=== PATIENT | female | born 1990 | race Caucasian/White ===

== ENCOUNTER 2017-07-02 06:09 | Inpatient (IN) ==
--- OUTSIDE RECORDS SUMMARY | 2017-07-02 06:19 | External Medical Summary | Continuity of Care Document ---
:1990 Author Organization [facility] Address [address] [place], [place] [id number] Phone Support Name Relationship Address Phone Deborah Jasso spouse [address] [phone] [place] [address] Allergies, Adverse Reactions, Alerts Substance Reaction Severity Status cefaclor rash Unknown Active Medications Medication Instructions Dosage Effective Dates Status Comments (start - stop) 28 mg take 1 by Oral route Not Available - Active iron-800 mcg every day tablet Problems Condition Effective Dates (start - stop) Clinical Status Encntr screen for infections w sexl - mode of transmiss Encounter for screening for oth - infec/parastc diseases Encntr for suprvsn of normal first - preg, first trimester Encounter for screening of - mother 13 weeks gestation of - Mild to moderate pre-eclampsia, third - trimester Encntr for suprvsn of normal first - preg, third trimester 34 weeks gestation of - Mild to moderate pre-eclampsia, third - trimester Decreased movements, third - trimester, unsp Encntr for suprvsn of normal first - preg, third trimester 34 weeks gestation of - Mild to moderate pre-eclampsia, third - trimester Encntr for suprvsn of normal first - preg, second trimester 19 weeks gestation of - Encntr for suprvsn of normal first - preg, second trimester 23 weeks gestation of - Encntr for suprvsn of normal first - preg, second trimester 27 weeks gestation of - Encntr for suprvsn of normal first - preg, second trimester 19 weeks gestation of - Encntr for suprvsn of normal first - preg, second trimester 17 weeks gestation of - Encntr for suprvsn of normal first - preg, third trimester 30 weeks gestation of - Encntr for suprvsn of normal first - preg, third trimester 35 weeks gestation of - Encntr for suprvsn of normal first - preg, third trimester 32 weeks gestation of - Encntr for suprvsn of normal first - preg, third trimester Encounter For Screening For - Streptococcus B 36 weeks gestation of - Procedures Procedure Date Unknown Results Test Name Date and Time Measure Units Reference Range Abnormal Flag Comments Unknown Advance Directives Directive Yes / No Effective Date File Name Unknown Encounters Encounter Practice Location Reason(s) Diagnoses Date Provider Care Team Description For Visit Members Jose Rincon Encestellar for Jun- Waylon Referring In Womens suprvsn of normal 5-201 Melissa. Provider: Bukc MALDONADO, first preg, third 7 700 Melissa PO Box trimesterEncounte Medical Waylon L, 1522, r For Center [address] [place] [address], Screening For Herb Sauceda Streptococcus B36 120, Alexis [id number], weeks gestation Herb Rincon 120, [place] of Sergey FRITZ, tel:[phone] [place], [id number] , [place]. [id number]. tel: [phone] Jose Tellor for Jun-1 Waylon Referring In Womens suprvsn of normal 0-201 Melissa. Provider: Buck MALDONADO, first preg, third 7 700 Melissa PO Box [email or web address] weeks Medical Waylon L, 1522, gestation of Center [address] [place] [address], Herb Sauceda, 120, Center [id number], Herb Rincon 120, [place] Sergey FRITZ, tel:[phone] [place], , [place]. [id number]. tel: tel: [phone] [facility] Sergey Mild to moderate Nov-0 Sobbing Referring In Womens pre-eclampsia, 3-201 Dimitris. Provider: Buck MALDONADO, third 7 700 Melissa PO Box trimesterEncntr Medical Waylon Menendez, 1522, for suprvsn of [address], normal first [address], Medical LAM, preg, third Suite Center [id number], [email or web address] weeks 120, Herb 120, [place] gestation of Sergey Rincon, tel: [place], [address], [id number]. [place]. tel: tel: [phone] [facility] Mild to moderate Nov-0 Waylon Referring In Womens pre-eclampsia, 2-201 Melissa. Provider: Buck MALDONADO, third trimester 7 700 Melissa PO Box Maciel Menendez, 1522, [place] [address] [place], , [facility] [place], 120, Alexis [id number], Rincon, [facility] 120, [place] LAM Sergey, tel:[phone] [place], , [place]. [id number]. tel: tel: [phone] [facility] Serge[facility] Mild to moderate Nov-0 Waylon Referring In Womens pre-eclampsia, 1-201 Melissa. Provider: Health ERICA, third 7 700 Melissa PO Box trimesterDecrease Maciel Menendez, 1522, d Center [address] [place], [place] [address]ta, movements, third , Herb [facility] LAM, trimester, 120, Alexis [id number], unspEncntr for Rincon, Herb 120, [place] suprvsn of normal Sergey FRITZ, tel: first preg, third [id number] [place], [email or web address] weeks , [place]. [id number]. gestation of tel: tel:+ [phone] [facility] Encntr for Oct-1 Waylon Referring In Womens suprvsn of normal 8-201 Melissa. Provider: Buck MALDONADO, first preg, third 7 700 Melissa PO Box [email or web address] weeks Medical Waylon Menendez, 1522, gestation of Center [address] [place], [place] [address]ta, Herb Sauceda [place], 120, Center [id number], Sergey [facility] 120, [place] Sergey FRITZ, tel: [phone] [place], , [place]. [id number]. tel: tel: [phone] [facility] Oct-0 Waylon In Womens 5-201 Melissa. Health ERICA, 7 700 PO Box Medical 1522, [facility], Dr [facility] [place], 120, [id number], Serge[place], [place], tel:[phone] , [place]. tel: [phone] Jose Rincon Encntr for Oct-0 Waylon Referring In Womens suprvsn of normal 4-201 Melissa. Provider: Buck MALDONADO, first preg, third 7 700 Melissa PO Box [email or web address] weeks Medical Waylon L, 1522, gestation of [address], Herb Sauceda [place], 120, Alexis [id number], Sergey [facility] 120, [place] Sergey FRITZ, tel:[phone] [place], , [place]. [id number]. tel: tel: [phone] [facility] Encntr for Sep-1 Waylon Referring In Womens suprvsn of normal 3-201 Melissa. Provider: Buck MALDONADO, first preg, 7 700 Melissa PO Box second Medical Waylon L, 1522, [email or web address], gestation of Herb Sauceda, 120, Alexis [id number], Sergey [facility] 120, [place] Sergey FRITZ, tel:[phone] [place], , [place]. [id number]. tel: tel: [phone] [facility] Encntr for Aug-1 Waylon Referring In Womens suprvsn of normal 6-201 Melissa. Provider: Buck MALDONADO, first preg, 7 700 Melissa PO Box second Medical Waylon L, 1522, [id number] weeks [address], gestation of Herb Sauceda, 120, Alexis [id number], Sergey [facility] 120, [place] Sergey FRITZ, tel:+ [phone] [place], , [place]. [id number]. tel: tel:[phone] Jose Rincon Encntr for Colby-1 Waylon Referring In Womens suprvsn of normal 9-201 Melissa. Provider: Buck MALDONADO, first preg, 7 700 Melissa PO Box second Medical Waylon L, 1522, [email or web address] weeks Center [address] [place] [address], gestation of Herb Sauceda, 120, Center [id number], Sergey, [facility] 120, [place] Sergey FRITZ, tel:[phone] [place], , [place]. [id number]. tel: tel:[phone] Jose Rincon Encntr for Colby-1 Waylon Referring In Womens Ultrasound suprvsn of normal 9-201 Melissa. Provider: Buck MALDONADO, first preg, 7 700 Melissa PO Box second Medical Waylon L, 1522, [email or web address] weeks Center [address] [place] [address], gestation of Herb Sauceda, 120, Center [id number], Sergey [facility] 120, [place] Sergey FRITZ, tel:[phone] [place], , [place]. [id number]. tel: tel:[phone] Jose Rincon Encntr for Colby-0 Waylon Referring In Womens suprvsn of normal 5-201 Melissa. Provider: Buck MALDONADO, first preg, 7 700 Melissa PO Box second Medical Waylon L, 1522, [email or web address] weeks Center [address] [place] [address], gestation of Herb Sauceda, 120, Center [id number], Sergey [facility] 120, [place] Sergey FRITZ, tel:[phone] [place], , [place]. [id number]. tel: tel:[phone] Jose Rincon Encntr screen for Jose Eduardo-0 Waylon Referring In Womens infections w sexl 7-201 Melissa. Provider: Buck MALDONADO, mode of 7 700 Melissa PO Box transmissEncounte Medical Waylon L, 1522, r for screening Center [address] [place] [address], for oth , [facility], infec/parastc 120, Alexis [id number], [facility]tr [facility], for suprvsn of Sergey FRITZ, tel:2 normal first [id number] LAM, [id number] preg, [facility] , [place]. [id number]. trimesterEncounte tel: tel: r for [phone] screening of weeks gestation of Family History Family Member Diagnosis Age At Onset No family history of Venous Thrombosis No family history of Pulmonary Embolism No family history of Ovarian Cancer No family history of Stroke No family history of Kidney Disease No family history of Osteoporosis No family history of Epilepsy No family history of Hypertension No family history of Lung Disease No family history of Diabetes No family history of Cardiovascular Disease No family history of Thyroid Disorder No family history of Breast Cancer No family history of Colon Cancer Immunizations Vaccine Date Status Comments Unknown Payers Payer name Insurance type Covered democrat ID Authorization(s) [facility] [id number] [facility] [id number] Social History Type Description Quantity Date Captured Unknown Vital Signs Date / Height Weight BMI Pulse Blood Temperature Respiratory Body Head BMI Time: Rate Pressure Rate Surface Circumference percentile Area Unknown Chief Complaint And Reason For Visit Unknown Chief Complaint And Reason For Visit Reason For Referral Reason For Referral Unknown Plan Of Care Date Type Action Status Appointment Aide Jasso BOOKED Appointment Aide Jasso BOOKED Appointment Aide Jasso BOOKED Future Order: Radiology Order Complete OB Ultrasound > 14 Ordered Weeks ([id number]) Date Type Problem Goal Intervention Status Start Date Unknown. History Of Present Illness Encounter Date Complaint History Of Present Illness This patient has no known history of present illness Functional Status Encounter Date Functional Assessment Cognitive Assessment Unknown Medications Administered Medication Instructions Dosage Effective Dates (start - stop) Status Comments Drug Treatment Unknown Instructions Date Instruction Additional Information HIV and other routine tests risk factors identified by history anticipated course of care nutrition and weight gain counseling, special diet toxoplasmosis precautions (cats / raw meat) sexual activity exercise indications for ultrasound influenza vaccine environmental / work hazards travel tobacco (ask, advise, assess, assist and arrange) alcohol illicit / recreational drugs use of any medications (including supplements, vitamins, herbs, OTC drugs) smoking counseling domestic violence seat belt use childbirth classes / hospital facilities hospital registration genetic testing new ob handbook
--- OUTSIDE RECORDS SUMMARY | 2017-07-02 06:19 | External Medical Summary | Continuity of Care Document ---
:1990 Author Organization [facility] Address [address] [place], [place] [id number] Phone Support Name Relationship Address Phone Deborah Jasso spouse [address] [phone] [place] [address] Allergies, Adverse Reactions, Alerts Substance Reaction Severity Status cefaclor rash Unknown Active Medications Medication Instructions Dosage Effective Dates Status Comments (start - stop) 28 mg take 1 by Oral route Not Available - Active iron-800 mcg every day tablet Problems Condition Effective Dates (start - stop) Clinical Status Encntr for suprvsn of normal first - preg, second trimester 23 weeks gestation of - Encntr screen for infections w sexl - mode of transmiss Encounter for screening for oth - infec/parastc diseases Encntr for suprvsn of normal first - preg, first trimester Encounter for screening of - mother 13 weeks gestation of - Encntr for suprvsn of normal first - preg, second trimester 19 weeks gestation of - 17 weeks gestation of - Encntr for suprvsn of normal first - preg, second trimester Encntr for suprvsn of normal first - preg, second trimester 19 weeks gestation of - Procedures Procedure Date OB Visit No Charge Results Test Name Date and Time Measure Units Reference Range Abnormal Flag Comments Unknown Advance Directives Directive Yes / No Effective Date File Name Unknown Encounters Encounter Practice Location Reason(s) Diagnoses Date Provider Care Team Description For Visit Members Jose Rincon Encntr for Aug-1 Waylon Referring In Womens suprvsn of normal 6-201 Melissa. Provider: Health [place], first preg, 7 700 Melissa PO Box second Medical Waylon L, 1522, [email or web address] weeks Center [address] [place], [place] [address], gestation of Herb Sauceda, 120, Center [id number], Sergey, [facility] 120, [place] Sergey FRITZ, tel:[phone] [place], , [place]. [id number]. tel: tel:[phone] Jose Rincon Encntr for Colby-1 Waylon Referring In Womens suprvsn of normal 9-201 Melissa. Provider: Health PA, first preg, 7 700 Melissa PO Box second Medical Waylon L, 1522, [email or web address] weeks Center [address] [place] [address], gestation of Herb Sauceda, 120, Center [id number], [facility] 120, [place] Sergey FRITZ, tel:[phone] [place], , [place]. [id number]. tel: tel:[phone] Jose Rincon Encntr for Jan-1 Waylon Referring In Womens Ultrasound suprvsn of normal 9-201 Melissa. Provider: Health ERICA, first preg, 7 700 Melissa PO Box second Medical Waylon L, 1522, [email or web address] weeks Center [address] [place] [address], gestation of Herb Sauceda, 120, Center [id number], Sergey [facility] 120, [place] Sergey FRITZ, tel:[phone] [place], , [place]. [id number]. tel: tel:[phone] Jose Rincon 17 weeks Colby-0 Waylon Referring In Womens gestation of 5-201 Melissa. Provider: Health ERICA, pregnancyEncntr 7 700 Melissa PO Box for suprvsn of Medical Waylon L, 1522, normal first Center [address] [place] [address], preg, second Herb Sauceda, trimester 120, Center [id number], Sergey, [facility] 120, [place] Sergey FRITZ, tel:[phone] LAM, , [place]. [id number]. tel: tel: [phone] [facility]y Encntr screen for Jose Eduardo-0 Waylon Referring In Womens infections w sexl 7-201 Melissa. Provider: Buck MALDONADO, mode of 7 700 Melissa PO Box transmissEncounte Medical Waylon L, 1522, r for screening Center [address] [place], for oth , [facility] Medical [place], infec/parastc 120, Center [id number], diseasesEncntr [facility] 120, [place] for suprvsn of Sergey FRITZ, tel:2 normal first [id number] [place], [id number] preg, [facility] , . [id number]. trimesterEncounte tel: tel: r for [phone] screening of [id number] weeks gestation of Family History Family Member [...] Unknown Payers Payer name Insurance type Covered libertarian ID Authorization(s) [facility] [id number] Social History Type Description Quantity Date Captured Alcohol Use Details No Caffeine Use Details Unknown Tobacco Use Status Unknown Smoking Status Never smoker Vital Signs Date / Height Weight BMI Pulse Blood Temperature Respiratory Body Head BMI Time: Rate Pressure Rate Surface Circumference percentile Area 217.00 32.0 132/86 -2017 lbs 4 mm[Hg] 11:01 kg/m AM eter (2) Chief Complaint And Reason For Visit Unknown Chief Complaint And Reason For Visit Reason For Referral Reason For Referral Unknown Plan Of Care Date Type Action Status Appointment Aide Jasso BOOKED Future Order: Radiology Order Complete OB Ultrasound > 14 Ordered Weeks ([id number]) Date Type Problem Goal Intervention Status Start [...]
--- OUTSIDE RECORDS SUMMARY | 2017-07-02 06:19 | External Medical Summary | Continuity of Care Document ---
:1990 Author Organization [facility] Address [address] [place], [place] [id number] Phone Support Name Relationship Address Phone Deborah Jasso spouse [address] [phone] [place] [address] Allergies, Adverse Reactions, Alerts Substance Reaction Severity [...] Provider Care Team Description For Visit Members Jsoe Rincon Encestellar for Jun- Waylon Referring In Womens suprvsn of normal 5-201 Melissa. Provider: Buck MALDONADO, first preg, third 7 700 Melissa PO Box trimesterEncounte Medical Waylon L, 1522, r For Center [address] [place] [address], Screening For Herb Sauceda Streptococcus B36 120, [place] [id number], weeks gestation Herb Rincon 120, [place] of Sergey FRITZ, tel:[phone] [place], [id number] , [place]. [id number]. tel: [phone] Jose Tellor for Jun-1 Waylon Referring In Womens suprvsn of normal 0-201 Melissa. Provider: Buck MALDONADO, first preg, third 7 700 Melissa PO Box [email or web address] weeks Medical Waylon L, 1522, gestation of Center [address] [place] [address], Herb Sauceda, 120, Center [id number], Herb Rincon 120, [place] Sergey FRITZ, tel:[phone] [place], , [place]. [id number]. tel: tel: [phone] [facility] Sergey Mild to moderate Nov-0 Sobbing Referring In Womens pre-eclampsia, 3-201 [place]. Provider: Health ERICA, third 7 700 Melissa PO Box trimesterEncntr Medical Waylon Menendez, 1522, for suprvsn of Center [address] [place], normal [address], Medical [place], preg, third Suite Center [id number], [email or web address] weeks 120, Herb 120, [place] gestation of Rincon Sergey, tel: [place], [address], [id number]. [place]. tel: tel: [phone] [facility] Sergey Mild to moderate Nov-0 Waylon Referring In Womens pre-eclampsia, 2-201 Melissa. Provider: Health ERICA, third trimester 7 700 Melissa PO Box [facility] Waylon Menendez, 1522, Center [facility] Dr Amarilys, [facility], 120, [place] [id number], [facility] 120, [place] Sergey FRITZ, tel:[phone] [place], , [place]. [id number]. tel: tel: [phone] [facility] Sergey Mild to moderate Nov-0 Waylon Referring In Womens pre-eclampsia, 1-201 Melissa. Provider: Health ERICA, third 7 700 Melissa PO Box trimesterDecrease Medical Waylon Menendez, 1522, d Center [facility] Amarilys, movements, third Herb Sauceda, trimester, 120, [place] [id number], unspEncntr for [place], Herb 120, [place] suprvsn of normal LAM Rincon, tel: first preg, third [id number] [place], weeks , [place]. [id number]. gestation of tel: tel:+ [phone] [facility] Sergey Oct-3 Daniel Referring In Womens 1-201 [place]. 700 Provider: Buck MALDONADO, 7 Medical Melissa PO Box [place] Waylon Menendez, 1522, , [place] [address] [place], 120, Medical Sergey FRITZ, [place] [id number], [place], [facility] 120, [place] [id number] Sergey, tel: , [place]. [place], tel: [phone]. [id number] tel:[phone] Jose Rincon Encntr for Oct-1 Waylon Referring In Womens suprvsn of normal 8-201 Melissa. Provider: Buck MALDONADO, first preg, third 7 700 Melissa PO Box [id number] weeks Medical Waylon L, 1522, gestation of Center [address] [place] [address], Dr [facility], 120, Center [id number], [facility], [place] Sergey FRITZ, tel:[phone] [place], , [place]. [id number]. tel: tel: [phone] Jose Rincon Encntr for Oct-0 Waylon Referring In Womens suprvsn of normal 4-201 Melissa. Provider: Buck MALDONADO, first preg, third 7 700 Melissa PO Box weeks Medical Waylon L, 1522, gestation of Center [address] [place] [address], , [facility], 120, Center [id number], [facility] 120, [place] Sergey FRITZ, tel: [phone] [place], , [place]. [id number]. tel: tel: [phone] Jose Rincon Encntr for Sep-1 Waylon Referring In Womens suprvsn of normal 3-201 Melissa. Provider: Buck MALDONADO, first preg, 7 700 Melissa PO Box second Medical Waylon L, 1522, [id number] weeks Center [address] [place] [address], gestation of Dr [facility] Maciel [place], 120, [place] [id number], [facility] 120, [place] Sergey FRITZ, tel: [phone] [place], , [place]. [id number]. tel: tel:[phone] Jose Rincon Encntr for Aug-1 Waylon Referring In Womens suprvsn of normal 6-201 Melissa. Provider: Buck MALDONADO, first preg, 7 700 Melissa PO Box second Medical Waylon L, 1522, [email or web address] weeks Center [address] [place] [address], gestation of Herb Sauceda, 120, Center [id number], Sergey, [facility] 120, [place] Sergey FRITZ, tel:[phone] [place], , [place]. [id number]. tel: tel:[phone] Jose Rincon Encntr for Colby-1 Waylon Referring In Womens suprvsn of normal 9-201 Melissa. Provider: Buck MALDONADO, first preg, 7 700 Melissa PO Box second Medical Waylon L, 1522, [email or web address] weeks Center [address] [place] [address], gestation of Herb Sauceda, 120, Center [id number], Sergey [facility] 120, US Sergey FRITZ, tel:[phone] [place], , [place]. [id number]. tel: tel:[phone] Jose Rincon Encntr for Colby-1 Waylon Referring In Womens Ultrasound suprvsn of normal 9-201 Melissa. Provider: Buck MALDONADO, first preg, 7 700 Melissa PO Box second Medical Waylon L, 1522, [email or web address] weeks Center [address] [place] [address], gestation of Herb Sauceda, 120, Center [id number], Sergey [facility] 120, US Sergey FRITZ, tel:[phone] LAM, , [place]. [id number]. tel: tel:[phone] Jose Rincon Encntr for Colby-0 Waylon Referring In Womens suprvsn of normal 5-201 Melissa. Provider: Buck MALDONADO, first preg, 7 700 Melissa PO Box second Medical Waylon L, 1522, [id number] weeks Center [address] [place] [address], gestation of Herb Sauceda, 120, Center [id number], Sergey [facility] 120, US Sergey FRITZ, tel:[phone] LAM, , [place]. [id number]. tel: tel:[phone] Jose Rincno Encntr screen for Jose Eduardo-0 Waylon Referring In Womens infections w sexl 7-201 Melissa. Provider: Health PA, mode of 7 700 Melissa PO Box transmissEncounte Medical Waylon L, 1522, r for screening Center 700 [place], for oth , [facility] Medical [place] infec/parastc 120, Center [id number], diseasesEncntr Sergey, [facility] 120, [place] for suprvsn of LAMSergey, tel:2 normal first [id number] [place], [id number] preg, first , [place]. [id number]. trimesterEncounte tel: tel: r for [phone] screening of weeks gestation of Family History [...] Unknown Payers Payer name Insurance type Covered constitution party ID Authorization(s) [facility] [id number] [facility] [id number] Social History Type Description Quantity Date Captured [...] Complete OB Ultrasound > 14 Ordered Weeks ([id number]) Date Type Problem Goal Intervention Status Start [...]
--- OUTSIDE RECORDS SUMMARY | 2017-07-02 06:19 | External Medical Summary | Continuity of Care Document ---
:1992 Author Organization [facility] Address [address] [place], [place] [address] Phone Support Name Relationship Address Phone Deborah Jasso spouse [address] [phone] [place] [address] Allergies, Adverse Reactions, Alerts Substance Reaction Severity [...] second trimester 17 weeks gestation of - Procedures Procedure Date Unknown Results Test Name Date and Time Measure Units Reference Range Abnormal Flag Comments Unknown Advance Directives Directive Yes / No Effective Date File Name Unknown Encounters Encounter Practice Location Reason(s) Diagnoses Date Provider Care Team Description For Visit Members Jose Rincon Encntr for Waylon Referring In [facility] suprvsn of normal 9-201 Melissa. Provider: Buck MALDONADO, first preg, 7 700 Melissa PO [address] second Medical Waylon L, 1522, [id number] weeks Center [address] [place], gestation of Herb Sauceda, 120, Center [id number], Sergey [facility] 120, [place] Sergey FRITZ, tel:[phone] [place], , [place]. [id number]. tel: tel:[phone] Jose Rincon Encntr for Colby-1 Waylon Referring In Womens Ultrasound suprvsn of normal 9-201 Melissa. Provider: Buck MALDONADO, first preg, 7 700 Melissa PO [address] second Medical Waylon L, 1522, [id number] weeks Center [address] [place] [address], gestation of Herb Sauceda, 120, [place] [id number], Sergey [facility] 120, [place] Sergey FRITZ, tel:[phone] [place], , [place]. [id number]. tel: tel:+ [phone] Jose Rincon Encntr for Colby-0 Waylon Referring In Womens suprvsn of normal 5-201 Melissa. Provider: Buck MALDONADO, first preg, 7 700 Melissa PO Box second Medical Waylon L, 1522, [id number] weeks Center [address] [place] [address], gestation of Herb Sauceda, 120, [place] [id number], Sergey [facility] 120, [place] Sergey FRITZ, tel:[phone] [place], , [place]. [id number]. tel: tel:[phone] Jose Rincon Colby-0 Waylon In Womens 5-201 Melissa. Buck MALDONADO, 7 700 PO Box Medical 1522, [place], Herb Sauceda, 120, [id number], Sergey, [place] LAM, tel:[phone] , [place]. tel: [phone] Jose Rincon Encntr screen for Jose Eduardo-0 Waylon Referring In Womens infections w sexl 7-201 Melissa. Provider: Buck MALDONADO, mode of 7 700 Melissa PO Box transmissEncounte Medical Waylon L, 1522, r for screening [address], for oth Herb Sauceda, infec/parastc 120, Center [id number], diseasesEncntr Sergey, [facility] 120, [place] for suprvsn of Sergey FRITZ, tel: normal first [id number] LAM, [id number] preg, first , [place]. [id number]. trimesterEncounte tel: tel: r for [phone] screening of [id number] weeks gestation of Family History Family Member [...] name Insurance type Covered libertarian ID Authorization(s) [facility] [id number] Social History Type Description Quantity Date Captured [...] Complete OB Ultrasound > 14 Ordered Weeks (33026) Date Type Problem Goal Intervention Status Start [...]
--- OUTSIDE RECORDS SUMMARY | 2017-07-02 06:19 | External Medical Summary | Continuity of Care Document ---
:1992 Author Organization [facility] Address [address] [place], [place] [address] Phone Support Name Relationship Address Phone Deborah Jasso spouse [address] [phone] [place] [address] Allergies, Adverse Reactions, Alerts Substance Reaction Severity [...] trimester 17 weeks gestation of - Encntr screen for [...] Jose Rincon Encntr for Waylon Referring In [facility] suprvsn of normal 9-201 Melissa. Provider: Buck MALDONADO, first preg, 7 700 Melissa PO Box second Medical Waylon L, 1522, [email or web address] weeks Center 700 [place], gestation of Herb Sauceda, 120, Center [id number], Sergey [facility] 120, [place] Sergey FRITZ, tel:[phone] [place], , [place]. [id number]. tel: tel:[phone] Jose Rincon Encntr for Colby-1 Waylon Referring In Womens Ultrasound suprvsn of normal 9-201 Melissa. Provider: Health [place], first preg, 7 700 Melissa PO Box second Medical Waylon L, 1522, [id number] weeks Center [address] [place] [address], gestation of Herb Sauceda, 120, Center [id number], Sergey [facility] 120, [place] Sergey FRITZ, tel:[phone] [place], , [place]. [id number]. tel: tel:[phone] Jose Rincon Encntr for Colby-0 Waylon Referring In Womens suprvsn of normal 5-201 Melissa. Provider: Health [place], first preg, 7 700 Melissa PO Box second Medical Waylon L, 1522, weeks Center [address] [place] [address], gestation of Herb Sauceda, 120, Center [id number], Sergey [facility] 120, [place] Sergey FRITZ, tel:[phone] [place], , [place]. [id number]. tel: tel:[phone] Jose Rincon Encntr screen for Jose Eduardo-0 Waylon Referring In Womens infections w sexl 7-201 Melissa. Provider: Health [place], mode of 7 700 Melissa PO Box transmissEncounte Medical Waylon L, 1522, r for screening Center [address] [place] [address], for oth Herb Sauceda, infec/parastc 120, Center [id number], diseasesEncntr Sergey [facility] 120, [place] for suprvsn of Sergey FRITZ, tel:[phone] normal first [id number] [place], preg, first , [place]. [id number]. trimesterEncounte tel: tel:[phone] r for [phone] screening of [id number] weeks gestation of Family History Family Member [...] Unknown Payers Payer name Insurance type Covered republican ID Authorization(s) [facility] [id number] Social History Type Description Quantity Date Captured Alcohol Use Details No Caffeine Use Details Unknown Tobacco Use Status Unknown Smoking Status Never smoker Vital Signs Date / Height Weight BMI Pulse Blood Temperature Respiratory Body Head BMI Time: Rate Pressure Rate Surface Circumference percentile Area 207.20 30.5 131/80 2017 lbs 9 mm[Hg] 1:24 kg/m PM eter (2) Chief Complaint And Reason For Visit Unknown Chief Complaint And Reason For Visit Reason For Referral Reason For Referral Unknown Plan Of Care Date Type Action Status Appointment Aide Jasso BOOKED Future Order: Radiology Order Complete OB Ultrasound > 14 Ordered Weeks (47790) Date Type Problem Goal Intervention Status Start [...]
--- OUTSIDE RECORDS SUMMARY | 2017-07-02 06:20 | External Medical Summary | Continuity of Care Document ---
:1992 Author Organization [facility] Address [address] [place], [place] [address] Phone Support Name Relationship Address Phone Deborah Jasso spouse [address] [phone] [place] [address] Allergies, Adverse Reactions, Alerts Substance Reaction Severity [...] third trimester 32 weeks gestation of - Procedures Procedure Date Unknown Results Test Name Date and Time Measure Units Reference Range Abnormal Flag Comments Unknown Advance Directives Directive Yes / No Effective Date File Name Unknown Encounters Encounter Practice Location Reason(s) Diagnoses Date Provider Care Team Description For Visit Members [facility] [place] Encntr for Oct-1 Waylon Referring In Womens suprvsn of normal 8-201 Melissa. Provider: Buck MALDONADO, first preg, third 7 700 Melissa [address] [id number] weeks Medical Waylon L, 1522, gestation of Center [address] [place] [address], [facility] [place], 120, [place] [id number], Sergey [place] 120, Sergey FRITZ, tel:[phone] [facility] , [place]. [id number]. tel: tel: [phone] Jose Rincon Oct-0 Waylon In Womens 5-201 Melissa. Buck MALDONADO, 7 700 PO Box Medical 1522, [place], Dr Rust [place], 120, [id number], [place], [place], tel:+ [phone] , [place]. tel: [phone] Jose Rincon Encntr for Oct-0 Waylon Referring In Womens suprvsn of normal 4-201 Melissa. Provider: Buck MALDONADO, first preg, third 7 700 Melissa [address] [id number] weeks Medical Waylon L, 1522, gestation of [address], Herb Sauceda [place], 120, [place] [id number], Sergey [place] 120, Sergey FRITZ, tel:[phone] [place], , [place]. [id number]. tel: tel:[phone] Jose Rincon Encntr for Sep-1 Waylon Referring In Womens suprvsn of normal 3-201 Melissa. Provider: Buck MALDONADO, first preg, 7 700 Melissa PO Box second Medical Waylon L, 1522, [id number] weeks Center [address] [place] [address], gestation of Dr Rust [place], 120, [place] [id number], Sergey [place] 120, Sergey FRITZ, tel:[phone] [place], , [place]. [id number]. tel: tel:[phone] Jose Rincon Encntr for Aug-1 Waylon Referring In Womens suprvsn of normal 6-201 Melissa. Provider: Health ERICA, first preg, 7 700 Melissa PO Box second Medical Waylon L, 1522, [id number] weeks Center [address] [place] [address], gestation of Herb Sauceda, 120, Center [id number], Sergey [place] 120, [place] Sergey FRITZ, tel:[phone] [place], , [place]. [id number]. tel: tel:[phone] Jose Rincon Encntr for Jan-1 Waylon Referring In Womens suprvsn of normal 9-201 Melissa. Provider: Buck MALDONADO, first preg, 7 700 Melissa PO Box second Medical Waylon L, 1522, [email or web address] weeks Center [address] [place] [address], gestation of Herb Sauceda, 120, [place] [id number], Sergey [place] 120, [place] Sergey FRITZ, tel:[phone] [place], , [place]. [id number]. tel: tel:[phone] Jose Rincon Encntr for Jan-1 Waylon Referring In Womens Ultrasound suprvsn of normal 9-201 Melissa. Provider: Buck MALDONADO, first preg, 7 700 Melissa PO Box second Medical Waylon L, 1522, weeks [address], gestation of Herb Sauceda, 120, Center [id number], Sergey [place] 120, [place] Sergey FRITZ, tel:[phone] [place], , [place]. [id number]. tel: tel:[phone] Jose Rincon Encntr for Jan-0 Waylon Referring In Womens suprvsn of normal 5-201 Melissa. Provider: Health ERICA, first preg, 7 700 Melissa PO Box second Medical Waylon L, 1522, weeks [address], gestation of Herb Sauceda, 120, Center [id number], Sergey, Rust 120, Sergey FRITZ, tel: [phone] [place], , [place]. [id number]. tel: tel:[phone] Associates [place] Encnttom screen for Jose Eduardo-0 Waylon Referring In Womens infections w sexl 7-201 Melissa. Provider: [facility], mode of 7 700 Melissa PO Box transmissEncounte Medical Waylon L, 1522, r for screening Center 700 [place], for oth , [facility], infec/parastc 120, Center [id number], diseasesEncntr Rincon, [place] 120, [place] for suprvsn of LAM Sergey, tel:2 normal first [id number] [place], preg, first , [place]. [id number]. trimesterEncounte tel: tel:[phone] r for [phone] screening of [email or web address] weeks gestation of Family History Family Member [...] name Insurance type Covered republican ID Authorization(s) [facility] [id number] [facility] [id number] Social History Type Description Quantity Date Captured [...] Complete OB Ultrasound > 14 Ordered Weeks (31961) Date Type Problem Goal Intervention Status Start [...]
--- OUTSIDE RECORDS SUMMARY | 2017-07-02 06:20 | External Medical Summary | Continuity of Care Document ---
:1992 Author Organization [email or web address] Address [address] [place], [place] [address] Phone Support Name Relationship Address Phone Deborah Jasso spouse [address] [phone] [place] [address] Allergies, Adverse Reactions, Alerts Substance Reaction Severity [...] trimester 32 weeks gestation of - Encntr screen for [...] third trimester 30 weeks gestation of - Procedures Procedure Date OB Visit No Charge Results Test Name Date and Time Measure Units Reference Range Abnormal Flag Comments Unknown Advance Directives Directive Yes / No Effective Date File Name Unknown Encounters Encounter Practice Location Reason(s) Diagnoses Date Provider Care Team Description For Visit Members [facility] Mild to moderate Nov-0 [place] Referring In Womens pre-eclampsia, 3-201 Dimitris. Provider: Buck MALDONADO, third 7 700 Melissa PO Box trimesterEncntr Maciel Menendez, 1522, for suprvsn of Center [address] [place] [address], [address], Medical [place], [facility], third Suite Center [id number], [email or web address] weeks 120, Herb 120, [place] gestation of Sergey Rincon, tel:+ [place], [address], [id number]. [place]. tel: tel: [phone] Associates [place] Mild to moderate Nov-0 Waylon Referring In Womens pre-eclampsia, 2-201 Melissa. Provider: Buck MALDONADO, third trimester 7 700 Melissa PO Box Medical Waylon L, 1522, Center [address] [place] [address], , [facility] Medical [place], 120, [place] [id number], [facility] 120, Sergey FRITZ, tel:[phone] [facility] , [place]. [id number]. tel: tel: [phone] Associates [place] Mild to moderate Nov-0 Waylon Referring In Womens pre-eclampsia, 1-201 Melissa. Provider: Buck MALDONADO, third 7 700 Melissa PO Box trimesterDecrease Medical Waylon L, 1522, d Center [address] [place] [address], movements, third Herb Sauceda, trimester, 120, Center [id number], unspEncntr for [facility] 120, [place] suprvsn of normal Sergey FRITZ, tel:[phone] first preg, third [id number] [place], [id number] weeks , [place]. [id number]. gestation of tel: tel:[phone] Associates [place] Encntr for Oct-1 Waylon Referring In Womens suprvsn of normal 8-201 Melissa. Provider: Health [place], first preg, third 7 700 Melissa PO Box [id number] weeks Medical Waylon Menendez, 1522, gestation of Center [address] [place] [address], Herb Sau[place], 120, Center [id number], Sergey [facility] 120, [place] Sergey FRITZ, tel:+ [phone] [place], , [place]. [id number]. tel: tel:[phone] Jose Rincon Encntr for Oct-0 Waylon Referring In Womens suprvsn of normal 4-201 Melissa. Provider: Health [place], first preg, third 7 700 Melissa PO Box [id number] weeks Medical Waylon Menendez, 1522, gestation of Center [address] [place] [address], Herb Sauced[place], 120, [place] [id number], Sergey [facility] 120, [place] Sergey FRITZ, tel:+ [phone] LAM, , [place]. [id number]. tel: tel: [phone] Jose Rincon Encntr for Sep-1 Waylon Referring In Womens suprvsn of normal 3-201 Melissa. Provider: Health [place], first preg, 7 700 Melissa PO Box second Medical Waylon L, 1522, [id number] weeks Center [address] [place] [address], gestation of Herb Sauceda, 120, Center [id number], Sergey [facility] 120, [place] Sergey FIRTZ, tel:+ [phone] [place], , [place]. [id number]. tel: tel:[phone] Jose Rincon Encntr for Aug-1 Waylon Referring In Womens suprvsn of normal 6-201 Melissa. Provider: Health ERICA, first preg, 7 700 Melissa PO Box second Medical [place] L, 1522, [email or web address] weeks Center [address] [place] [address], gestation of Herb Sauceda, 120, Center [id number], Sergey, [facility] 120, [place] Sergey FRITZ, tel:[phone] [place], , [place]. [id number]. tel: tel:[phone] Jose Rincon Encntr for Jan-1 Waylon Referring In Womens suprvsn of normal 9-201 Melissa. Provider: Health ERICA, first preg, 7 700 Melissa PO Box second Medical Waylon L, 1522, [id number] weeks Center [address] [place] [address], gestation of Herb Sauceda, 120, Center [id number], Sergey [facility] 120, [place] Sergey FRITZ, tel:[phone] [place], , [place]. [id number]. tel: tel:[phone] Jose Rincon Encntr for Jan-1 Waylon Referring In Womens Ultrasound suprvsn of normal 9-201 Melissa. Provider: Buck MALDONADO, first preg, 7 700 Melissa PO Box second Medical Waylon L, 1522, [email or web address] weeks Center [address] [place] [address], gestation of Herb Sauceda, 120, Center [id number], Sergey [facility] 120, [place] Sergey FRITZ, tel:[phone] [place], , [place]. [id number]. tel: tel:[phone] Jose Rincon Encntr for Colby-0 Waylon Referring In Womens suprvsn of normal 5-201 Melissa. Provider: Buck MALDONADO, first preg, 7 700 Melissa PO Box second Medical Waylon L, 1522, [email or web address] weeks Center [address] [place] [address], gestation of Herb Sauceda, 120, Center [id number], Sergey, [facility] 120, [place] Sergey FRITZ, tel:[phone] LAM, , [place]. [id number]. tel: tel: [phone] [facility] for Jose Eduardo-0 Waylon Referring In Womens infections w sexl 7201 Melissa. Provider: Buck MALDONADO, mode of 7 700 Melissa PO Box transmissEncounte Medical Waylon L, 1522, r for screening Center 700 [place], for oth , [facility] Medical LAM infec/parastc 120, Center [id number], diseasesEncntr Sergey, [facility] 120, [place] for suprvsn of Sergey FRITZ, tel: normal first [id number] [place], [id number] preg, first , . [id number]. trimesterEncounte tel: tel: r for [phone] screening of [id number] weeks gestation of Family History Family Member [...] Unknown Payers Payer name Insurance type Covered green party ID Authorization(s) [facility] [id number] [facility] [id number] Social History Type Description Quantity Date Captured Alcohol Use Details No Caffeine Use Details Unknown Tobacco Use Status Unknown Smoking Status Never smoker Vital Signs Date / Height Weight BMI Pulse Blood Temperature Respiratory Body Head BMI Time: Rate Pressure Rate Surface Circumference percentile Area 239.70 35.3 129/81 -2017 lbs 9 mm[Hg] 11:51 kg/m AM eter (2) Chief Complaint And Reason For Visit Unknown Chief Complaint And Reason For Visit Reason For Referral Reason For Referral Unknown Plan Of Care Date Type Action Status Appointment Aide Jasso BOOKED Appointment Aide Jasso BOOKED Appointment Aide Jasso BOOKED Appointment Aide Jasso BOOKED Future Order: Radiology Order Complete OB Ultrasound > 14 Ordered Weeks (09761) Date Type Problem Goal Intervention Status Start [...]
--- OUTSIDE RECORDS SUMMARY | 2017-07-02 06:20 | External Medical Summary | Continuity of Care Document ---
:1990 Author Organization [facility] Address [address] [place], [place] [id number] Phone Support Name Relationship Address Phone Deborah Jasso spouse [address] [phone] [place] [address] Allergies, Adverse Reactions, Alerts Substance Reaction Severity Status cefaclor rash Unknown Active Medications Medication Instructions Dosage Effective Dates Status Comments (start - stop) 28 mg take 1 by Oral route Not Available - Active iron-800 mcg every day tablet Problems Condition Effective Dates (start - stop) Clinical Status Mild to moderate pre-eclampsia, third - trimester Encntr for suprvsn of normal first - preg, third trimester 34 weeks gestation of - Encntr screen for [...] of normal first - preg, third trimester 37 weeks gestation of - Encntr for suprvsn [...] For Visit Members Jose Rincon Encestellar for Waylon Referring In Womens suprvsn of normal 2-201 Melissa. Provider: Buck MALDONADO, first preg, third 7 700 Melissa [address] [id number] weeks Maciel Connors L, 1522, gestation of Center [address] [place] [address], Dr [facility], 120, [place] [id number], Sergey [facility] 120, [place] Sergey FRITZ, tel:[phone] [place], [id number] , [place]. [id number]. tel: tel:[phone] Jose Tellor for Waylon Referring In Womens suprvsn of normal 5-201 Melissa. Provider: Buck MALDONADO, first preg, third 7 700 Melissa PO Box trimesterEncounte Maciel Connors L, 1522, r For Center [address] [place] [address], Screening For Herb Sauceda, Streptococcus B36 120, Center [id number], weeks gestation Rincon, Herb 120, [place] of LAMSergey, tel:[phone] [place], , [place]. [id number]. tel: tel: [phone] Associates Sergey Encnttom for Nov-1 Waylon Referring In Womens suprvsn of normal 0-201 Melissa. Provider: Health PA, first preg, third 7 700 Melissa [address] [email or web address] weeks Medical Waylon L, 1522, gestation of Center [address] [place] [address], , [address] [place], 120, Center [id number], Rincon, [facility] 120, [place] Sergey FRITZ, tel:[phone] [place], , [place]. [id number]. tel: tel: [phone] Associates Sergey Mild to moderate Nov-0 Sobbing Referring In Womens pre-eclampsia, 3-201 Dimitris. Provider: Health PA, third 7 700 Melissa PO Box trimesterEncntr Medical Waylon L, 1522, for suprvsn of Center [address] [place] [address], [address], Medical LAM, preg, third Suite Center [id number], [id number] weeks 120, Herb 120, [place] gestation of Sergey Rincon, tel:+ [place], [place], [address], [id number]. [place]. tel: tel: [phone] Jose Rincon Mild to moderate Nov-0 Waylon Referring In Womens pre-eclampsia, 2-201 Melissa. Provider: Health PA, third trimester 7 700 Emlissa PO Box Medical Waylon L, 1522, Center [address] [place] [address], Herb Sauceda [place], 120, Center [id number], Rincon, [facility] 120, [place] Sergey FRITZ, tel:[phone] [place], , [place]. [id number]. tel: tel: [phone] Jose Rincon Mild to moderate Nov-0 Waylon Referring In Womens pre-eclampsia, 1-201 Melissa. Provider: Health PA, third 7 700 Melissa PO Box trimesterDecrease Medical Waylon L, 1522, d Center [address] [place] [address], movements, third Herb Sauceda, trimester, 120, Center [id number], [facility], [place] suprvsn of normal Sergey FRITZ, tel:[phone] first preg, third [id number] [place], [email or web address] weeks , [place]. [id number]. gestation of tel: tel:[phone] Jose Rincon Encntr for Oct-1 Waylon Referring In Womens suprvsn of normal 8-201 Melissa. Provider: Health ERICA, first preg, third 7 700 Melissa PO Box [email or web address] weeks Medical Waylon L, 1522, gestation of Center [address] [place] [address], Herb Sauceda [place], 120, Center [id number], Sergey [facility] 120, [place] Sergey FRITZ, tel:[phone] [place], , [place]. [id number]. tel: tel: [phone] Jose Rincon Encntr for Oct-0 Waylon Referring In Womens suprvsn of normal 4-201 Melissa. Provider: Buck MALDONADO, first preg, third 7 700 Melissa PO [address] [id number] weeks Medical Waylon L, 1522, gestation of Center [address] [place] [address], Herb Sauceda [place], 120, Center [id number], Sergey [facility] 120, [place] Sergey FRITZ, tel:+ [phone] [place], , [place]. [id number]. tel: tel: [phone] Jose Rincon Encntr for Sep-1 Waylon Referring In Womens suprvsn of normal 3-201 Melissa. Provider: Health ERICA, first preg, 7 700 Melissa PO Box second Medical Waylon L, 1522, [email or web address] weeks Center [address] [place] [address], gestation of Herb Sauceda, 120, Center [id number], Sergey [facility] 120, [place] Sergey FRITZ, tel:[phone] [place], , [place]. [id number]. tel: tel:[phone] Jose Rincon Encntr for Aug-1 Waylon Referring In Womens suprvsn of normal 6-201 Melissa. Provider: Health ERICA, first preg, 7 700 Melissa PO Box second Medical Waylon L, 1522, [email or web address] weeks Center [address] [place] [address], gestation of Herb Sauceda, 120, Center [id number], Sergey, [facility] 120, [place] Sergey FRITZ, tel:[phone] [place], , [place]. [id number]. tel: tel:[phone] Jose Rincon Encntr for Colby-1 Waylon Referring In Womens suprvsn of normal 9-201 Melissa. Provider: Buck MALDONADO, first preg, 7 700 Melissa PO Box second Medical Waylon L, 1522, [id number] weeks Center [address] [place] [address], gestation of Herb Sauceda, 120, [place] [id number], Sergey [facility] 120, [place] Sergey FRITZ, tel:[phone] [place], , [place]. [id number]. tel: tel:[phone] Jose Rincon Encntr for Colby-1 Waylon Referring In Womens Ultrasound suprvsn of normal 9-201 Melissa. Provider: Buck MALDONADO, first preg, 7 700 Melissa PO Box second Medical Waylon L, 1522, [email or web address] weeks Center [address] [place] [address], gestation of Herb Sauceda, 120, [place] [id number], Sergey [facility] 120, [place] Sergey FRITZ, tel:[phone] [place], , [place]. [id number]. tel: tel:[phone] Jose Rincon Encntr for Colby-0 Waylon Referring In Womens suprvsn of normal 5-201 Melissa. Provider: Buck MALDONADO, first preg, 7 700 Melissa PO Box second Medical Waylon L, 1522, [id number] weeks Center [address] [place] [address], gestation of Herb Sauceda, 120, Center [id number], Sergey [facility] 120, [place] Sergey FRITZ, tel:[phone] [place], , [place]. [id number]. tel: tel: [phone] Associates Sergey Encnttom screen for Jose Eduardo-0 Waylon Referring In Womens infections w sexl 7-201 Melissa. Provider: Buck MALDONADO, mode of 7 700 Melissa PO Box transmissEncounte Medical Waylon L, 1522, r for screening Center 700 [place], for oth , [facility] Medical LAM infec/parastc 120, Center [id number], diseasesEncntr Sergey, [facility] 120, [place] for suprvsn of Sergey FRITZ, tel:2 normal first [id number] [place], preg, first , . [id number]. trimesterEncounte tel: tel: r for [phone] screening of [email or web address] weeks gestation of Family History Family Member [...] name Insurance type Covered democrat ID Authorization(s) [facility] [id number] [facility] [id number] Social History Type Description Quantity Date Captured Alcohol Use Details No Caffeine Use Details Unknown Tobacco Use Status Unknown Smoking Status Never smoker Vital Signs Date / Height Weight BMI Pulse Blood Temperature Respiratory Body Head BMI Time: Rate Pressure Rate Surface Circumference percentile Area 242.60 35.8 133/ lbs 2 mm[Hg] 1:17 kg/m PM eter (2) Chief Complaint And Reason For Visit Unknown Chief Complaint And Reason For Visit Reason For Referral Reason For Referral Unknown Plan Of Care Date Type Action Status Appointment Aide Jasso BOOKED Appointment Aide Jasso BOOKED Future Order: Radiology Order Complete OB Ultrasound > 14 Ordered Weeks (34807) Date Type Problem Goal Intervention Status Start [...]
--- OUTSIDE RECORDS SUMMARY | 2017-07-02 06:20 | External Medical Summary | Continuity of Care Document ---
:1990 Author Organization [facility] Address [address] [place], [place] [id number] Phone Support Name Relationship Address Phone Debroah Jasso spouse [address] [phone] [place] [address] Allergies, Adverse Reactions, Alerts Substance Reaction Severity [...] Care Team Description For Visit Members Jose Tellor for Waylon Referring In Womens suprvsn of normal 2-201 Melissa. Provider: Buck MALDONADO, first preg, third 7 700 Melissa PO Box [email or web address] weeks Maciel Connors L, 152, gestation of Center [address] [place] [address], Dr [facility], 120, [place] [id number], Sergey [facility] 120, [place] Sergey FRITZ, tel:[phone] [place], [id number] , [place]. [id number]. tel: tel:[phone] Jose Tellor for Waylon Referring In Womens suprvsn of normal 5-201 Emlissa. Provider: Buck MALDONADO, first preg, third 7 700 Melissa PO Box trimesterEncounte Maciel Connors L, 1522, r For Center [address] [place] [address], Screening For Dr [facility], Streptococcus B36 120, Center [id number], weeks gestation Rincon, Herb 120, [place] of Sergey FRITZ, tel:[phone] [place], , [place]. [id number]. tel: tel: [phone] [facility] Encntr for Nov-1 Waylon Referring In Womens suprvsn of normal 0-201 Melissa. Provider: Health PA, first preg, third 7 700 Melissa PO Box [id number] weeks Medical Waylon L, 1522, gestation of Center [address] [place] [address], , [facility], 120, Center [id number], Rincon, [facility] 120, [place] Sergey FRITZ, tel:[phone] [place], , [place]. [id number]. tel: tel: [phone] Associates Serge[facility] Nov-0 Sobbing In Womens 3-201 Dimitris. Health ERICA, 7 700 PO Box Medical 1522, [place], [place], [id number], 120, [place] Sergey, tel: [place], [address], [place]. tel: [phone] [facility] Mild to moderate Nov-0 Sobbing Referring In Womens pre-eclampsia, 3-201 Dimitris. Provider: Health ERICA, third 7 700 Melissa PO Box trimesterEncntr Medical Waylon L, 1522, for suprvsn of Center [address] [place] [address], normal first [facility] ([place], [place]), [facility] LAM, preg, third Suite Center [id number], [id number] weeks 120, Herb 120, [place] gestation of Sergey Rincon, tel: [place], [place], [address], [id number]. [place]. tel: tel: [phone] Associates Serge[facility] Mild to moderate Nov-0 Waylon Referring In Womens pre-eclampsia, 2-201 Melissa. Provider: Buck MALDONADO, third trimester 7 700 Melissa PO Box Medical Waylon L, 1522, [address], , [facility] [place], 120, Center [id number], Sergey, Herb 120, [place] Sergey FRITZ, tel:[phone] [place], , [place]. [id number]. tel: tel:[phone] [facility] Mild to moderate Nov-0 Waylon Referring In Womens pre-eclampsia, 1-201 Melissa. Provider: Buck MALDONADO, third 7 700 Melissa PO Box trimesterDecrease Medical Waylon L, 1522, d Center [address] [place] [address], movements, third Dr [facility], trimester, 120, [place] [id number], unspEncntr for Rincon, [facility] 120, [place] suprvsn of normal Sergey FRITZ, tel:[phone] first preg, third [id number] [place], [id number] weeks , [place]. [id number]. gestation of tel: tel:[phone] [facility] Encntr for Oct-1 Waylon Referring In Womens suprvsn of normal 8-201 Melissa. Provider: Buck MALDONADO, first preg, third 7 700 Melissa PO Box [id number] weeks Medical Waylon L, 1522, gestation of Center [address] [place] [address], Dr [facility] [place], 120, [place] [id number], Sergey [facility] 120, [place] Sergey FRITZ, tel: [phone] [place], , [place]. [id number]. tel: tel:[phone] Associates [facility] Encntr for Oct-0 Waylon Referring In Womens suprvsn of normal 4-201 Melissa. Provider: Buck MALDONADO, first preg, third 7 700 Melissa PO Box [email or web address] weeks Medical Waylon L, 1522, gestation of Center [address] [place] [address], Dr [facility], 120, [place] [id number], Sergey [facility] 120, [place] Sergey FRITZ, tel:[phone] [place], , [place]. [id number]. tel: tel:[phone] [facility] Encntr for Sep-1 Waylno Referring In Womens suprvsn of normal 3-201 Melissa. Provider: Buck MALDONDAO, first preg, 7 700 Melissa PO Box second Medical Waylon L, 1522, [id number] weeks Center [address] [place] [address], gestation of Herb Sauceda, 120, Center [id number], Sergey, [facility] 120, [place] Sergey FRITZ, tel:[phone] [place], , [place]. [id number]. tel: tel:[phone] Jose Rincon Encntr for Aug-1 Waylon Referring In Womens suprvsn of normal 6-201 Melissa. Provider: Buck MALDONADO, first preg, 7 700 Melissa PO Box second Medical Waylon L, 1522, [email or web address] weeks Center 700 [place], gestation of Herb Sauceda, 120, Center [id number], Sergey, [facility] 120, [place] Sergey FRITZ, tel:[phone] [place], , [place]. [id number]. tel: tel:[phone] Jose Rincon Encntr for Colby-1 Waylon Referring In Womens suprvsn of normal 9-201 Melissa. Provider: Buck MALDONADO, first preg, 7 700 Melissa PO Box second Medical Waylon L, 1522, [id number] weeks Center [address] [place] [address], gestation of Herb Sauceda, 120, Center [id number], Sergey, [facility] 120, [place] Sergey FRITZ, tel:[phone] [place], , [place]. [id number]. tel: tel:[phone] Jose Rincon Encntr for Colby-1 Waylon Referring In Womens Ultrasound suprvsn of normal 9-201 Melissa. Provider: Buck MALDONADO, first preg, 7 700 Melissa PO Box second Medical Waylon L, 1522, [id number] weeks Center 700 [place], gestation of Herb Sauceda, 120, Center [id number], Sergey, [facility] 120, [place] Sergey FRITZ, tel:[phone] [place], , [place]. [id number]. tel: tel:[phone] Jose Rincon Encntr for Colby-0 Waylon Referring In Womens suprvsn of normal 5-201 Melissa. Provider: Buck MALDONADO, first preg, 7 700 Melissa PO Box second Medical Waylon L, 1522, [id number] weeks Center [address] [place], gestation of Dr, Herb FRITZ, 120, Center [id number], Sergey, [facility] 120, Sergey FRITZ, tel:[phone] [place], , [place]. [id number]. tel: tel:[phone] Associates Sergey Encnttom screen for Jose Eduardo-0 Waylon Referring In Womens infections w sexl 7-201 Melissa. Provider: Health PA, mode of 7 700 Melissa PO Box transmissEncounte Medical Waylon L, 1522, r for screening Center 700 [place], for oth , Herb FRITZ, infec/parastc 120, [place] [id number], [facility], [place] for suprvsn of Sergey FRITZ, tel:[phone] normal first [id number] [place], preg, first , [place]. [id number]. trimesterEncounte tel: tel:[phone] r for [phone] screening of [id number] weeks gestation of Family History Family Member [...] Insurance type Covered constitution party ID Authorization(s) [facility] [id number] [facility] [id number] Social History Type Description Quantity Date Captured [...] Complete OB Ultrasound > 14 Ordered Weeks (31093) Date Type Problem Goal Intervention Status Start [...]
--- OUTSIDE RECORDS SUMMARY | 2017-07-02 06:20 | External Medical Summary | Continuity of Care Document ---
:1990 Author Organization [facility] Address [address] [place], [place] [id number] Phone Support Name Relationship Address Phone Deborah Jasso spouse [address] [phone] [place] [address] Allergies, Adverse Reactions, Alerts Substance Reaction Severity [...] weeks gestation of - Procedures Procedure Date non-stress test OB Visit No Charge Results Test Name Date and Time Measure Units Reference Range Abnormal Flag Comments Panel Description: COMPREHENSIVE METABOLIC PANEL GLUCOSE 78 mg/dL 65-99 N 14:22:00 Fasting reference interval UREA NITROGEN 7 mg/dL 7-25 N (BUN) 14:22:00 CREATININE 0.51 mg/dL 0.50-1.10 N 14:22:00 eGFR NON-AFR. 134 mL/min/1.7 > OR=60 N MOZAMBICAN 14:22:00 3m2 eGFR 155 mL/min/1.7 > OR=60 N MOZAMBICAN 14:22:00 3m2 BUN/CREATININE NOT APPLICABLE (calc) 6-22 RATIO 14:22:00 SODIUM 138 mmol/L 135-146 N 14:22:00 POTASSIUM 3.8 mmol/L 3.5-5.3 N 14:22:00 CHLORIDE 104 mmol/L 98-110 N 14:22:00 CARBON DIOXIDE 27 mmol/L 20-31 N 14:22:00 CALCIUM 8.8 mg/dL 8.6-10.2 N 14:22:00 PROTEIN, TOTAL 5.9 g/dL 6.1-8.1 L 14:22:00 ALBUMIN 3.5 g/dL 3.6-5.1 L 14:22:00 GLOBULIN 2.4 g/dL 1.9-3.7 N 14:22:00 (calc) ALBUMIN/GLOBULIN 1.5 (calc) 1.0-2.5 N RATIO 14:22:00 BILIRUBIN, TOTAL 0.5 mg/dL 0.2-1.2 N 14:22:00 ALKALINE 110 U/L 33-115 N PHOSPHATASE 14:22:00 AST 19 U/L 10-30 N 14:22:00 ALT 22 U/L 6-29 N Test performed 14:22:00 at [place] [address]Buqhre or: GUSTAVO WALTER DO,MPH Panel Description: CREATININE CLEARANCE CREATININE 0.51 mg/dL 0.50-1.10 N 14:22:00 eGFR NON-AFR. 134 mL/min/1.73m > OR=60 N MOZAMBICAN 14:22:00 2 eGFR 155 mL/min/1.73m > OR=60 N MOZAMBICAN 14:22:00 2 CREATININE, 24 1.90 g/24 h 0.63-2.50 N HOUR URINE 14:22:00 BODY SURFACE AREA 2.24 14:22:00 CREATININE 200 mL/min 75-115 H CLEARANCE 14:22:00 HEIGHT FEET 5 ft 14:22:00 HEIGHT INCHES 9 in 14:22:00 WEIGHT POUNDS 242 Test performed at 14:22:00 Function [id number] [place] [address]Sudeccyo : GUSTAVO WALTER DO,MPH Panel Description: CBC (INCLUDES DIFF/PLT) WHITE BLOOD CELL 8.5 Thousand/uL 3.8-10.8 N COUNT 14:22:00 RED BLOOD CELL 3.84 Million/uL 3.80-5.10 N COUNT 14:22:00 HEMOGLOBIN 11.6 g/dL 11.7-15.5 L 14:22:00 HEMATOCRIT 34.2 % 35.0-45.0 L 14:22:00 MCV 89.1 fL 80.0-100.0 N 14:22:00 MCH 30.2 pg 27.0-33.0 N 14:22:00 MCHC 33.9 g/dL 32.0-36.0 N 14:22:00 RDW 12.2 % 11.0-15.0 N 14:22:00 PLATELET COUNT 190 Thousand/uL 140-400 N 14:22:00 MPV 11.2 fL 7.5-12.5 N 14:22:00 ABSOLUTE 5993 cells/uL 3270-7237 N NEUTROPHILS 14:22:00 ABSOLUTE 1573 cells/uL 850-3900 N LYMPHOCYTES 14:22:00 ABSOLUTE MONOCYTES 791 cells/uL 200-950 N 14:22:00 ABSOLUTE 128 cells/uL 15-500 N EOSINOPHILS 14:22:00 ABSOLUTE BASOPHILS 17 cells/uL 0-200 N 14:22:00 NEUTROPHILS 70.5 % N 14:22:00 LYMPHOCYTES 18.5 % N 14:22:00 MONOCYTES 9.3 % N 14:22:00 EOSINOPHILS 1.5 % N 14:22:00 BASOPHILS 0.2 % N Test performed at 14:22:00 babbel [id number] [facility] [place] [address]Xlmymgfo : GUSTAVO WALTER DO,MPH Panel Description: PROTEIN, TOTAL, 24 HOUR URINE (W/O CREATININE) PROTEIN, TOTAL, 364 mg/24 h <150 H TOTAL URINE VOLUME: 24 HR UR 14:22:00 2600/24REPORT COMMENT:FASTING:NOTest performed at babbel [id number] [place] [address]Fnofygcx: GUSTAVO WALTER DO,MPH Advance Directives Directive Yes / No Effective Date File Name Unknown Encounters Encounter Practice Location Reason(s) Diagnoses Date Provider Care Team Description For Visit Members Jose Tellor for Nov-1 Waylon Referring In Womens suprvsn of normal 5-201 Melissa. Provider: Health PA, first preg, third 7 700 Melissa PO Box trimesterEncounte Medical Waylon L, 1522, r For Center [address] [place] [address], Screening For Dr, Psychiatric, Streptococcus B36 120, [place] [id number], weeks gestation [place], [facility] 120, [place] of Sergey FRITZ, tel:[phone] [place], , [place]. [id number]. tel: tel: [phone] Jose Rincon Encntr for Nov-1 Waylon Referring In Womens suprvsn of normal 0-201 Melissa. Provider: Health PA, first preg, third 7 700 Melissa PO Box [email or web address] weeks Medical Waylon L, 1522, gestation of Center [address] [place] [address], Dr Psychiatric, 120, [place] [id number], [facility] 120, [place] Sergey FRITZ, tel:[phone] [place], , [place]. [id number]. tel: tel: [phone] Jose Rincon Mild to moderate Nov-0 Sobbing Referring In Womens pre-eclampsia, 3-201 [place]. Provider: Health PA, third 7 700 Melissa PO Box trimesterEncntr Medical Waylon L, 1522, for suprvsn of [address], normal [address], Medical LAM, preg, third Suite Center [id number], [email or web address] weeks 120, Herb 120, [place] gestation of Sergey Rincon, tel:+ [place], [address], [id number]. [place]. tel: tel: [phone] Jose Rincon Mild to moderate Nov-0 Waylon Referring In Womens pre-eclampsia, 2-201 Melissa. Provider: Health ERICA, third trimester 7 700 Melissa PO Box Medical Waylon L, 1522, Center [facility] [place], , [facility] [place], 120, Center [id number], Sergey, [facility] 120, [place] Sergey FRITZ, tel:[phone] [place], , [place]. [id number]. tel: tel:[phone] Associates Sergey Mild to moderate Nov-0 Waylon Referring In Womens pre-eclampsia, 1-201 Melissa. Provider: Health ERICA, third 7 700 Melissa PO Box trimesterDecrease Medical Waylon L, 1522, d Center [address] [place] [address], movements, third , Herb FRITZ, trimester, 120, [place] [id number], unspEncntr for Rincon, [facility] 120, [place] suprvsn of normal Sergey FRITZ, tel:+ first preg, third [phone] [place], weeks , [place]. [id number]. gestation of tel: tel:[phone] Associates Sergey Encntr for Oct-1 Waylon Referring In Womens suprvsn of normal 8-201 Melissa. Provider: Buck MALDONADO, first preg, third 7 700 Melissa PO Box weeks Medical Waylon L, 1522, gestation of Center [address] [place] [address], , [facility] [place], 120, [place] [id number], Sergey [facility] 120, [place] Sergey FRITZ, tel:[phone] [place], , [place]. [id number]. tel: tel:[phone] Associates Sergey Encntr for Oct-0 Waylon Referring In Womens suprvsn of normal 4-201 Melissa. Provider: Buck MALDONADO, first preg, third 7 700 Melissa PO Box [email or web address] weeks Medical Waylon L, 1522, gestation of Center [address] [place] [address], , [facility] [place], 120, [place] [id number], Sergey, [facility] 120, [place] Sergey FRITZ, tel:[phone] [place], , [place]. [id number]. tel: tel:[phone] Jose Rincon Encntr for Sep-1 Waylon Referring In Womens suprvsn of normal 3-201 Melissa. Provider: Buck MALDONADO, first preg, 7 700 Melissa PO Box second Medical Waylon L, 1522, [email or web address] weeks Center [address] [place] [address], gestation of Herb Sau[place], 120, [place] [id number], Sergey [facility] 120, [place] Sergey FRITZ, tel:[phone] [place], , [place]. [id number]. tel: tel:[phone] Jose Rincon Encntr for Aug-1 Waylon Referring In Womens suprvsn of normal 6-201 Melissa. Provider: Buck MALDONADO, first preg, 7 700 Melissa PO Box second Medical Waylon L, 1522, [email or web address] weeks Center [address] [place] [address], gestation of Herb Sau[place], 120, [place] [id number], Sergey [facility] 120, [place] Sergey FRITZ, tel:[phone] [place], , [place]. [id number]. tel: tel:[phone] Jose Rincon Encntr for Jan-1 Waylon Referring In Womens suprvsn of normal 9-201 Melissa. Provider: Buck MALDONADO, first preg, 7 700 Melissa PO Box second Medical Waylon L, 1522, [email or web address] weeks Center [address] [place] [address], gestation of Herb [place], 120, [place] [id number], Sergey [facility] 120, [place] Sergey FRITZ, tel:[phone] [place], , [place]. [id number]. tel: tel:[phone] Jose Rincon Encntr for Colby-1 Waylon Referring In Womens Ultrasound suprvsn of normal 9-201 Melissa. Provider: Buck MALDONADO, first preg, 7 700 Melissa PO Box second Medical Waylon L, 1522, [email or web address] weeks Center [address] [place] [address], gestation of Herb Sauced[place], 120, Center [id number], Sergey [facility] 120, [place] Sergey FRITZ, tel:[phone] [place], , [place]. [id number]. tel: tel:[phone] Jose Rincon Encntr for Colby-0 Waylon Referring In Womens suprvsn of normal 5-201 Melissa. Provider: Health ERICA, first preg, 7 700 Melissa PO Box second Medical Waylon L, 1522, [email or web address] weeks Center [address] [place] [address], gestation of Dr [facility] Maciel FRITZ, 120, Center [id number], [facility], Sergey FRITZ, tel:[phone] [place], , [place]. [id number]. tel: tel:[phone] Jose Rincon Encntr screen for Jose Eduardo-0 Waylon Referring In Womens infections w sexl 7-201 Melissa. Provider: Buck MALDONADO, mode of 7 700 [place] PO Box transmissEncounte Maciel Connors L, 1522, r for screening Center [address] [place] [address], for oth Dr [facility] Maciel FRITZ, infec/parastc 120, Center [id number], diseasesEncntr [facility] 120, for suprvsn of LAMSergey, tel:+ normal first [place], preg, [facility] , [place]. [id number]. trimesterEncounte tel: tel:[phone] r for [phone] screening of [email or web address] weeks gestation of Family History Family Member [...] Insurance type Covered constitution party ID Authorization(s) [facility] [id number] [facility] [id number] Social History Type Description Quantity Date Captured Alcohol Use Details No Caffeine Use Details Unknown Tobacco Use Status Unknown Smoking Status Never smoker Vital Signs Date / Height Weight BMI Pulse Blood Temperature Respiratory Body Head BMI Time: Rate Pressure Rate Surface Circumference percentile Area 242.40 35.7 130/85 -2017 lbs 9 mm[Hg] 11:34 kg/m AM eter (2) Chief Complaint And Reason For Visit Unknown Chief Complaint And Reason For Visit Reason For Referral Reason For Referral Unknown Plan Of Care Date Type Action Status Appointment Aide Jasso BOOKED Appointment Aide Jasso BOOKED Appointment Aide Jasso BOOKED Future Order: Radiology Order Complete OB Ultrasound > 14 Ordered Weeks (99332) Date Type Problem Goal Intervention Status Start [...]
--- OUTSIDE RECORDS SUMMARY | 2017-07-02 06:20 | External Medical Summary | Continuity of Care Document ---
:1990 Author Organization [facility] Address [address] [place], [place] [address] Phone Support Name Relationship Address Phone Deborah Jasso spouse [address] [phone] [place] [address] Allergies, Adverse Reactions, Alerts Substance Reaction Severity [...] trimester 27 weeks gestation of - Encntr screen for [...] Procedures Procedure Date OB Visit No Charge Hemoglobin count, colorimetric Hematocrit blood count Glucose test Venpnctr fngr/heel/ear stick routne Results Test Name Date and Time Measure Units Reference Range Abnormal Flag Comments Panel Description: Glucose [Mass/volume] in Serum or Plasma --1 hour post 50 g glucose PO GLUCOSE, GESTATIONAL 56 mg/dL <140 L Test performed at [employer] SCREEN (50G)-140 11:24:00 DIAGNOSTICS [id number] [place] [address]Bqfyxcnp: GUSTAVO WALTER DO,MPH Panel Description: HEMOGLOBIN + HEMATOCRIT HEMOGLOBIN 11:24:00 11.5 g/dL 11.7-15.5 L HEMATOCRIT 11:24:00 33.9 % 35.0-45.0 L REPORT COMMENT:FASTING :NOTest performed at [facility] [id number] [place] [id number]: GUSTAVO WALTER DO,MPH Advance Directives Directive Yes / No Effective Date File Name Unknown Encounters Encounter Practice Location Reason(s) Diagnoses Date Provider Care Team Description For Visit Members Jose Tellor for Waylon Referring In Womens suprvsn of normal 3-201 Melissa. Provider: Health ERICA, first preg, 7 700 Melissa PO Box second Medical Waylon L, 1522, [id number] weeks Center 700 [place], gestation of Herb [place], 120, [place] [id number], [facility], Sergey FRITZ, tel:+ [phone] [facility] [id number] , . [id number]. tel: tel:[phone] Jose Rincon Encntr for Waylon Referring In Womens suprvsn of normal 6-201 Melissa. Provider: Health ERICA, first preg, 7 700 Melissa PO Box second Medical Waylon L, 1522, [email or web address] weeks Center 700 [place], gestation of Herb Sauceda [place], 120, [place] [id number], [facility] 120, Sergey FRITZ, tel:[phone] [facility] , . [id number]. tel: tel:[phone] Jose Rincon Encntr for Colby-1 Waylon Referring In Womens suprvsn of normal 9-201 Melissa. Provider: Buck MALDONADO, first preg, 7 700 Melissa PO Box second Medical Waylon L, 1522, [email or web address] weeks Center 700 [place], gestation of Herb Sauced[place], 120, Center [id number], Sergey, [facility] 120, [place] Sergey FRITZ, tel:[phone] [place], , [place]. [id number]. tel: tel:[phone] Jose Rincon Encntr for Colby-1 Waylon Referring In Womens Ultrasound suprvsn of normal 9-201 Melissa. Provider: Buck MALDONADO, first preg, 7 700 Melissa PO Box second Medical Waylon L, 1522, [email or web address] weeks Center [address] [place] [address], gestation of Herb Sauced[place], 120, Center [id number], Sergey [facility] 120, [place] Sergey FRITZ, tel:[phone] [place], , [place]. [id number]. tel: tel:[phone] Jose Rincon Encntr for Colby-0 Waylon Referring In Womens suprvsn of normal 5-201 Melissa. Provider: Buck MALDONADO, first preg, 7 700 Melissa PO Box second Medical Waylon L, 1522, [email or web address] weeks Center [address] [place] [address], gestation of Herb Sauced[place], 120, Center [id number], Sergey [facility] 120, [place] Sergey FRITZ, tel:[phone] L[place], , [place]. [id number]. tel: tel:[phone] Jose Rincon Encntr screen for Jose Eduardo-0 Waylon Referring In Womens infections w sexl 7-201 Melissa. Provider: Buck MALDONADO, mode of 7 700 Melissa PO Box transmissEncounte Medical Waylon L, 1522, r for screening Center [address] [place] [address], for oth Herb Sauceda, infec/parastc 120, Center [id number], diseasesEncntr Sergey, [facility] 120, [place] for suprvsn of Sergey FRITZ, tel:[phone] normal first [id number] LAM, [id number] preg, , [place]. [id number]. trimesterEncounte tel: tel: r for [phone] screening of [email or web address] weeks gestation of Family History Family Member [...] name Insurance type Covered libertarian ID Authorization(s) [facility] [id number] Social History Type Description Quantity Date Captured [...] Complete OB Ultrasound > 14 Ordered Weeks (17206) Date Type Problem Goal Intervention Status Start [...]
--- OUTSIDE RECORDS SUMMARY | 2017-07-02 06:20 | External Medical Summary | Continuity of Care Document ---
:1990 Author Organization [facility] Address [address] [place], [place] [address] Phone Support Name Relationship Address Phone Deborah Jasso spouse [address] [phone] [place] [address] Allergies, Adverse Reactions, Alerts Substance Reaction Severity Status cefaclor rash Unknown Active Medications Medication Instructions Dosage Effective Dates Status Comments (start - stop) 28 mg take 1 by Oral route Not Available - Active iron-800 mcg every day tablet Problems Condition Effective Dates (start - stop) Clinical Status Mild to moderate pre-eclampsia, third - trimester Encntr screen for infections w sexl - [...] trimester 34 weeks gestation of - Encntr for suprvsn [...] weeks gestation of - Procedures Procedure Date CBC, Automated Hemogram Metabolic panel, comprehensive Creatinine clearance test ASSAY OF PROTEIN, URINE Venpnctr fngr/heel/ear stick routne Results Test Name Date and Time Measure Units Reference Range Abnormal Flag Comments Unknown Advance Directives Directive Yes / No Effective Date File Name Unknown Encounters Encounter Practice Location Reason(s) Diagnoses Date Provider Care Team Description For Visit Members Jose Tubbs for Waylon Referring In Womens suprvsn of normal 2-201 Melissa. Provider: Health PA, first preg, third 7 700 Melissa PO Box [email or web address] weeks Maciel Connors L, 1522, gestation of Center 700 [place], , [facility] Medical [place], 120, [place] [id number], Herb Rincon 120, [place] Sergey FRITZ, tel:[phone] [place], [address] , [place]. [id number]. tel: tel: [phone] Jose Tubbs for Waylon Referring In Womens suprvsn of normal 5-201 Melissa. Provider: Health PA, first preg, third 7 700 Melissa PO Box trimesterEncounte Medical Waylon L, 1522, r For Center [address] [place] [address], Screening For , Herb FRITZ, Streptococcus B36 120, Center [id number], weeks gestation Rincon, Herb 120, [place] of Sergey FRITZ, tel:[phone] [place], , [place]. [id number]. tel: tel: [phone] Associates Sergey Tubbs for Nov-1 Waylon Referring In Womens suprvsn of normal 0-201 Melissa. Provider: Health PA, first preg, third 7 700 Melissa PO Box [email or web address] weeks Medical Waylon L, 1522, gestation of Center [address] [place] [address], Herb Sauceda [place], 120, Center , Rincon, [facility] 120, [place] Sergey FRITZ, tel:[phone] [place], , [place]. [id number]. tel: tel: [phone] Associates Sergey Mild to moderate Nov-0 Sobbing Referring In Womens pre-eclampsia, 3-201 [place]. Provider: Health ERICA, third 7 700 Melissa PO Box trimesterEncntr Medical Waylon L, 1522, for suprvsn of Center [address] [place] [address], [address], Medical LAM, preg, third Suite Center [id number], [email or web address] weeks 120, Herb 120, [place] gestation of Sergey Rincon, tel: [place], [place], [address], [id number]. [place]. tel: tel: [phone] Associates Sergey Mild to moderate Nov-0 Waylon Referring In Womens pre-eclampsia, 2-201 Melissa. Provider: Health ERICA, third trimester 7 700 Melissa PO Box Medical Waylon L, 1522, Center [address] [place] [address], Herb Sauceda [place], 120, Center [id number], Rincon, Herb 120, [place] Sergey FRITZ, tel:[phone] [place], , [place]. [id number]. tel: tel: [phone] Associates Sergey Mild to moderate Nov-0 Waylon Referring In Womens pre-eclampsia, 1-201 Melissa. Provider: Health ERICA, third 7 700 Melissa PO Box trimesterDecrease Medical Waylon L, 1522, d Center [address] [place] [address], movements, third Herb Sauced[place], trimester, 120, Center [id number], unspEncntr for Sergey [facility] 120, [place] suprvsn of normal Sergey FRITZ, tel:[phone] first preg, third [id number] [place], [id number] weeks , [place]. [id number]. gestation of tel: tel:[phone] Associates Sergey Encntr for Oct-1 Waylon Referring In Womens suprvsn of normal 8-201 Melissa. Provider: Buck MALDONADO, first preg, third 7 700 Melissa PO Box [email or web address] weeks Medical Waylon L, 1522, gestation of Center [address] [place] [address], Herb Sauceda [place], 120, [place] [id number], Sergey [facility] 120, [place] Sergey FRITZ, tel:[phone] [place], , [place]. [id number]. tel: tel:[phone] Associates Sergey Encntr for Oct-0 Waylon Referring In Womens suprvsn of normal 4-201 Melissa. Provider: Buck MALDONADO, first preg, third 7 700 Melissa PO Box [email or web address] weeks Medical Waylon L, 1522, gestation of Center [address] [place] [address], Herb Sauceda [place], 120, [place] [id number], Sergey [facility] 120, [place] Sergey FRITZ, tel:+ [phone] [place], , [place]. [id number]. tel: tel:[phone] Associates Sergey Encntr for Sep-1 Waylon Referring In Womens suprvsn of normal 3-201 Melissa. Provider: Buck MALDONADO, first preg, 7 700 Melissa PO Box second Medical Waylon L, 1522, [email or web address] weeks Center [address] [place] [address], gestation of Herb Sauced[place], 120, Center [id number], Sergey [facility] 120, [place] Sergey FRITZ, tel:[phone] [place], , [place]. [id number]. tel: tel:[phone] Jose Rincon Encntr for Aug-1 Waylon Referring In Womens suprvsn of normal 6-201 Melissa. Provider: Buck MALDONADO, first preg, 7 700 Melissa PO Box second Medical Waylon L, 1522, weeks Center 700 [place], gestation of Herb Sauced[place], 120, Center [id number], Sergey, [facility] 120, [place] Sergey FRITZ, tel:[phone] [place], , [place]. [id number]. tel: tel:[phone] Jose Rincon Encntr for Colby-1 Waylon Referring In Womens suprvsn of normal 9-201 Melissa. Provider: Buck MALDONADO, first preg, 7 700 Melissa PO Box second Medical Waylon L, 1522, [id number] weeks Center [address] [place] [address], gestation of Herb Sauced[place], 120, Center [id number], [facility] 120, [place] Sergey FRITZ, tel:[phone] [place], , [place]. [id number]. tel: tel:[phone] Jose Rincon Encntr for Colby-1 Waylon Referring In Womens Ultrasound suprvsn of normal 9-201 Melissa. Provider: Buck MALDONADO, first preg, 7 700 Melissa PO Box second Medical Waylon L, 1522, [id number] weeks Center [address] [place] [address], gestation of Herb Sauced[place], 120, Center [id number], Sergey, [facility] 120, [place] Sergey FRITZ, tel: [phone] [place], , [place]. [id number]. tel: tel:[phone] Jose Rincon Encntr for Colby-0 Waylon Referring In Womens suprvsn of normal 5-201 Melissa. Provider: Buck MALDONADO, first preg, 7 700 Melissa PO Box second Medical Waylon L, 1522, [email or web address] weeks Center 700 [place], gestation of Herb Sauceda, 120, Center [id number], Sergey, [facility] 120, Sergey FRITZ, tel: [phone] [place], , [place]. [id number]. tel: tel:[phone] Associates Sergey Encshine screen for Jose Eduardo-0 Waylon Referring In Womens infections w sexl 7-201 Melissa. Provider: Buck PA, mode of 7 700 Melissa PO Box transmissEncounte Medical Waylon L, 1522, r for screening Center [address] [place] [address], for oth , [facility], infec/parastc 120, [place] [id number], diseasesEncntr Sergey, [facility] 120, [place] for suprvsn of Sergey FRITZ, tel: normal first [phone] [place], preg, first , [place]. [id number]. trimesterEncounte tel: tel:[phone] r for [phone] screening of [id number] weeks gestation of Family History Family Member [...] Unknown Payers Payer name Insurance type Covered alliance party ID Authorization(s) [facility] [id number] [facility] [id number] Social History Type Description Quantity Date Captured [...] Complete OB Ultrasound > 14 Ordered Weeks (84511) Date Type Problem Goal Intervention Status Start [...]
--- OUTSIDE RECORDS SUMMARY | 2017-07-02 06:20 | External Medical Summary | Continuity of Care Document ---
:1990 Author Organization [facility] Address [address] [place], [place] [id number] Phone Support Name Relationship Address Phone Deborah Jasso spouse [address] [phone] [place] [address] Allergies, Adverse Reactions, Alerts Substance Reaction Severity [...] trimester 30 weeks gestation of - Encntr screen for [...] For Visit Members Jose Rincon Encntr for May-1 Waylon Referring In Womens suprvsn of normal 8-201 Melissa. Provider: Buck MALDONADO, first preg, third 7 700 Melissa [address] [email or web address] weeks Medical Waylon L, 1522, gestation of Center [address] [place] [address], Dr [facility] [place], 120, Center [id number], Sergey [facility] 120, Sergey FRITZ, tel:[phone] [place], , [place]. [id number]. tel: tel:[phone] Jose Rincon Encntr for May-0 Waylon Referring In Womens suprvsn of normal 4-201 Melissa. Provider: Buck MALDONADO, first preg, third 7 700 Melissa [address] [email or web address] weeks Medical Waylon L, 1522, gestation of Center [address] [place] [address], Dr [facility] [place], 120, [place] [id number], Sergey [facility] 120, [place] Sergey FRITZ, tel:[phone] [place], , [place]. [id number]. tel: tel:[phone] Jose Rincon Encntr for Sep-1 Waylon Referring In Womens suprvsn of normal 3-201 Melissa. Provider: Buck MALDONADO, first preg, 7 700 Melissa [address] second Medical Way[place] L, 1522, [email or web address] weeks Center [address] [place] [address], gestation of Herb Sauceda, 120, [place] [id number], Sergey [facility] 120, [place] Sergey FRITZ, tel:[phone] [place], , [place]. [id number]. tel: tel:[phone] Jose Rincon Encntr for Mar- Waylon Referring In Womens suprvsn of normal 6-201 Melissa. Provider: Health PA, first preg, 7 700 Melissa [address] second Medical Way[place] L, 1522, [email or web address] weeks Center [address] [place] [address], gestation of Herb Sauceda, 120, Center [id number], Sergey [facility] 120, [place] Sergey FRITZ, tel:[phone] [place], , [place] [id number]. tel: tel:[phone] Jose Rincon Encntr for Colby-1 Waylon Referring In Womens suprvsn of normal 9-201 Melissa. Provider: Health PA, first preg, 7 700 Melissa [address] second Medical Waylon L, 1522, [email or web address] weeks Center [address] [place] [address], gestation of Herb Sauceda, 120, Center [id number], Sergey [facility] 120, [place] Sergey FRITZ, tel:[phone] [place], , [place] [id number]. tel: tel:[phone] Jose Rincon Encntr for Colby-1 Waylon Referring In Womens Ultrasound suprvsn of normal 9-201 Melissa. Provider: Buck MALDONADO, first preg, 7 700 Melissa [address] second Medical Way[place] L, 1522, [email or web address] weeks Center [address] [place] [address], gestation of Herb Sauceda, 120, [place] [id number], Sergey [facility] 120, [place] Sergey FRITZ, tel:[phone] [place], , [place] [id number]. tel: tel:[phone] Rincon Encntr for Colby-0 Waylon Referring In Womens suprvsn of normal 5-201 Melissa. Provider: Buck MALDONADO, first preg, 7 700 Melissa [address] second Medical Waylon L, 1522, [email or web address] weeks Center [address] [place] [address], gestation of Herb Sauceda, 120, Center [id number], Sergey [facility] 120, [place] Sergey FRITZ, tel:[phone] [place], , [place]. [id number]. tel: tel:[phone] Rincon Encntr screen for Jose Eduardo-0 Waylon Referring In Womens infections w sexl 7-201 Melissa. Provider: Health PA, mode of 7 700 Melissa [address] transmissEncounte Medical Waylon L, 1522, r for screening Center 700 [place], for oth , [facility] [place] infec/parastc 120, Center [id number], diseasesEncntr Sergey, [facility] 120, [place] for suprvsn of Sergey FRITZ, tel: normal first [phone] [place], [id number] preg, [facility] , [place]. [id number]. trimesterEncounte tel: tel: r for [phone] screening of [email or web address] weeks gestation of Family History Family Member [...] Insurance type Covered green party ID Authorization(s) [facility] [id number] [facility] [id number] Social History Type Description Quantity Date Captured Alcohol Use Details No Caffeine Use Details Unknown Tobacco Use Status Unknown Smoking Status Never smoker Vital Signs Date / Height Weight BMI Pulse Blood Temperature Respiratory Body Head BMI Time: Rate Pressure Rate Surface Circumference percentile Area 235.00 34.7 131/80 -2017 lbs 0 mm[Hg] 11:43 kg/m AM eter (2) Chief Complaint And Reason For Visit Unknown Chief Complaint And Reason For Visit Reason For Referral Reason For Referral Unknown Plan Of Care Date Type Action Status Appointment Aide Jasso BOOKED Appointment Aide Jasso BOOKED Appointment Aide Jasso BOOKED Appointment Aide Jasso BOOKED Appointment Aide Jasso BOOKED Future Order: Radiology Order Complete OB Ultrasound > 14 Ordered Weeks ([id number]) Date Type Problem Goal Intervention Status Start [...]
[2017-07-02] MEDS ORDERED: MAG-AL + SIM ORAL LIQUID 30ml PO PRN ×2 (06:21→15:32)
[2017-07-02] MEDS ORDERED: LIDOCAINE 1% (10mg/ml) 2mL INJ PF SDV ID PRN (06:21)
[2017-07-02] MEDS ORDERED: D5LR 1,000 ML IV PRN (06:21)
[2017-07-02] MEDS ORDERED: CARBOPROST 250 MCG/ML INJECTION IM PRN (06:21)
[2017-07-02] MEDS ORDERED: METHYLERGONOVINE 0.2 MG/ML INJECTION IM PRN (06:21)
[2017-07-02] MEDS ORDERED: ACETAMINOPHEN 500 MG TABLET PO PRN ×2 (06:21→15:32)
[2017-07-02] MEDS ORDERED: OXYTOCIN DRIP 30 UNIT/500 ML ML IV PRN (06:21)
[2017-07-02] MEDS ORDERED: CALCIUM CARBONATE Chewable 500mg TABLET PO PRN ×2 (06:21→15:32)
--- OUTSIDE RECORDS SUMMARY | 2017-07-02 06:21 | External Medical Summary | Continuity of Care Document ---
:1990 Author Organization [facility] Address [address] [place], [place] [id number] Phone Support Name Relationship Address Phone Deborah Jasso spouse [address] [phone] [place] [address] Allergies, Adverse Reactions, Alerts Substance Reaction Severity [...] trimester 19 weeks gestation of - Encntr screen for [...] Procedures Procedure Date OB Visit No Charge - DOPEMAN Results Test Name Date and Time Measure Units Reference Range Abnormal Flag Comments Unknown Advance Directives Directive Yes / No Effective Date File Name Unknown Encounters Encounter Practice Location Reason(s) Diagnoses Date Provider Care Team Description For Visit Members Associates [facility] Encntr for Waylon Referring In [facility] suprvsn of normal 9-201 Melissa. Provider: Buck MALDONADO, first preg, 7 700 Melissa [address] second Medical Waylon L, 1522, [email or web address] weeks Center 700 [place], gestation of Herb Sauceda, 120, Center [id number], Sergey [facility] 120, [place] Sergey FRITZ, tel:[phone] [place], , [place]. [id number]. tel: tel:[phone] Jose Rincon Encntr for Colby-1 Waylon Referring In Womens Ultrasound suprvsn of normal 9-201 Melissa. Provider: Health [place], first preg, 7 700 Melissa [address] second Medical Waylon L, 1522, [email or web address] weeks Center [address] [place] [address], gestation of Herb Sauceda, 120, Center [id number], Sergey [facility] 120, [place] Sergey FRITZ, tel:[phone] [place], , [place]. [id number]. tel: tel:[phone] Jose Rincon Encntr for Colby-0 Waylon Referring In Womens suprvsn of normal 5-201 Melissa. Provider: Health PA, first preg, 7 700 Melissa [address] second Medical Waylon L, 1522, [email or web address] weeks Center [address] [place] [address], gestation of Herb Sauceda, 120, Center [id number], Sergey [facility] 120, [place] Sergey FRITZ, tel:[phone] [place], , [place] [id number]. tel: tel:[phone] Jose Rincon Encntr screen for Jose Eduardo-0 Waylon Referring In Womens infections w sexl 7-201 Melissa. Provider: Health PA, mode of 7 700 Melissa [address] transmissEncounte Medical Waylon L, 1522, r for screening Center [address] [place] [address], for oth Herb Sauceda, infec/parastc 120, Center [id number], diseasesEncntr Sergey [facility] 120, [place] for suprvsn of Sergey FRITZ, tel:[phone] normal first [phone] [place], preg, first , [place]. [id number]. trimesterEncounte tel: tel:[phone] r for [phone] screening of [email or web address] weeks gestation of Family History Family Member [...] Insurance type Covered constitution party ID Authorization(s) [facility] [place] [facility] [id number] Social History Type Description Quantity Date Captured Alcohol Use Details No Caffeine Use Details Unknown Tobacco Use Status Unknown Smoking Status Never smoker Vital Signs Date / Height Weight BMI Pulse Blood Temperature Respiratory Body Head BMI Time: Rate Pressure Rate Surface Circumference percentile Area 207.10 30.5 115/71 2017 lbs 8 mm[Hg] 11:53 kg/m AM eter (2) Chief Complaint And Reason For Visit Unknown Chief Complaint And Reason For Visit Reason For Referral Reason For Referral Unknown Plan Of Care Date Type Action Status Appointment Aide Jasso BOOKED Future Order: Radiology Order Complete OB Ultrasound > 14 Ordered Weeks ([id number]) Date Type Problem Goal Intervention Status Start [...]
--- OUTSIDE RECORDS SUMMARY | 2017-07-02 06:21 | External Medical Summary | Continuity of Care Document ---
:1990 Author Organization [facility] Address [address] [place], [place] [address] Phone Support Name Relationship Address Phone Deborah Jasso spouse [address] [phone] [place] [address] Allergies, Adverse Reactions, Alerts Substance Reaction Severity [...] weeks gestation of - Procedures Procedure Date Ultrasound exam of preg uterus, complete Results Test Name Date and Time Measure Units Reference Range Abnormal Flag Comments Unknown Advance Directives Directive Yes / No Effective Date File Name Unknown Encounters Encounter Practice Location Reason(s) Diagnoses Date Provider Care Team Description For Visit Members Associates Sergey Encntr for Waylon Referring In [facility] suprvsn of normal 9-201 Melissa. Provider: Buck MALDONADO, first preg, 7 700 Melissa [address] second Medical Waylon L, 1522, [id number] weeks Center 700 [place], gestation of Herb Sauceda, 120, Center [id number], Sergey [facility] 120, [place] Sergey FRITZ, tel:[phone] [place], , [place]. [id number]. tel: tel:[phone] Jose Rincon Encntr for Colby-1 Waylon Referring In Womens Ultrasound suprvsn of normal 9-201 Melissa. Provider: Health PA, first preg, 7 700 Melissa [address] second Medical Waylon L, 1522, [email or web address] weeks Center [address] [place] [address], gestation of Herb Sauceda, 120, Center [id number], Sergey [facility] 120, [place] Sergey FRITZ, tel:[phone] [place], , [place]. [id number]. tel: tel:[phone] Jose Rincon Encntr for Colby-0 Waylon Referring In Womens suprvsn of normal 5-201 Melissa. Provider: Health PA, first preg, 7 700 Melissa [address] second Medical Waylon L, 1522, [email or web address] weeks Center [address] [place] [address], gestation of Herb Sauceda, 120, Center [id number], Sergey [facility] 120, [place] Sergey FRITZ, tel:[phone] [place], , [place]. [id number]. tel: tel:[phone] Jose Rincon Encntr screen for Jose Eduardo-0 Waylon Referring In Womens infections w sexl 7-201 Melissa. Provider: Health PA, mode of 7 700 Melissa [address] transmissEncounte Medical Waylon L, 1522, r for screening Center [address] [place] [address], for oth Herb Sauceda, infec/parastc 120, Center [id number], diseasesEncntr Sergey [facility] 120, [place] for suprvsn of Sergey FRITZ, tel:[phone] normal first [id number] [place], preg, first , [place]. [id number]. trimesterEncounte tel: tel:[phone] r for [phone] screening of [email or web address] weeks gestation of Family History Family Member [...] Insurance type Covered green party ID Authorization(s) [id number] [place] BL [id number] Social History Type Description Quantity Date Captured [...] Complete OB Ultrasound > 14 Ordered Weeks (46108) Date Type Problem Goal Intervention Status Start [...] childbirth classes / hospital facilities hospital registration Jose Eduardo-07-2017 genetic testing new ob handbook
--- OUTSIDE RECORDS SUMMARY | 2017-07-02 06:21 | External Medical Summary | Continuity of Care Document ---
:1990 Author Organization [facility] Allergies Active Description Code Type Severity Reaction Onset Reported/ Identified Relationship Clinical to Patient Status Yes cefaclor 2726 1 N/A rash Medications Problems Date Dx Coded Attending Type Code Diagnosis Diagnosed By 02/18/2017 Melissa Connors Z34.02 Encntr for suprvsn of normal first preg, second trimester 02/18/2017 Melissa Connors Z3A.19 19 weeks gestation of 06/03/2017 Melissa Connors O36.8130 Decreased movements, third trimester, unsp 06/03/2017 Melissa Connors O36.8130 Decreased movements, third trimester, unsp 06/08/2017 Melissa Connors O14.03 Mild to moderate pre-eclampsia, third trimester Procedures Code Description Performed By Performed On 02/18/2017 32382 Ultrasnd exam of preg uterus, compl 05/07/2017 40016 Immuniz admnin, 1 vac, sngl/combo Flu 05/07/2017 25739 Vaccine - Quadrivalent 06/03/2017 72659 non-stress test 06/04/2017 39211 Venpnctr fngr/heel/ear stick routne 06/04/2017 94627 Metabolic panel, comprehensive 06/04/2017 54146 Creatinine clearance test ASSAY 06/04/2017 25011 OF PROTEIN, URINE 06/04/2017 42509 Automated hemogram (CBC) Results Encounters ACCT No. Visit Discharge Status Pt. Type Provider Facility Loc./Unit Complaint Date/Time [id number] 06/24/2017 06/24/2017 [facility] Outpatient [facility], 11:30:00 23:59:59 Melissa Menendez [id number] 06/17/2017 06/17/2017 [facility] Out[facility], 11:30:00 23:59:59 Melissa Shon [id number] 06/12/2017 06/12/2017 [facility] Outpatient [facility], 13:00:00 23:59:59 Melissa L [id number] 06/05/2017 06/05/2017 [facility] [place], 14:12:00 23:59:59 Dimitris L [id number] 06/05/2017 06/05/2017 [facility] [place], 13:00:00 23:59:59 Dimitris L [id number] 06/04/2017 06/04/2017 [facility] Outpatient [place], 14:20:00 23:59:59 Melissa L [id number] 06/03/2017 06/03/2017 [facility] Outpatient [place], 11:15:00 23:59:59 Melissa L [id number] 06/02/2017 06/02/2017 [facility] Outpatient [place], 23:05:00 23:59:59 Martinez R [id number] 05/20/2017 05/20/2017 [facility] Outpatient [place], 11:30:00 23:59:59 Melissa L [id number] 05/07/2017 05/07/2017 [facility] Outpatient [place], 11:58:00 23:59:59 Melissa L [id number] 05/06/2017 05/06/2017 [facility] Outpatient [place], 11:30:00 23:59:59 Melissa L [id number] 04/15/2017 04/15/2017 [facility] Outpatient [place], 10:25:00 23:59:59 Melissa L [id number] 03/18/2017 03/18/2017 [facility] Outpatient [place], 11:00:00 23:59:59 Melissa L [id number] 02/18/2017 02/18/2017 [facility] Outpatient [place], 11:30:00 23:59:59 Melisas L [id number] 02/18/2017 02/18/2017 [facility] Outpatient [place], 11:15:00 23:59:59 Melissa L [id number] 02/04/2017 02/04/2017 [facility] Outpatient [place], 13:15:00 23:59:59 Melissa L [id number] 02/04/2017 02/04/2017 [facility] Outpatient [place], 09:58:00 23:59:59 Melissa L [id number] 01/07/2017 01/07/2017 [facility] Outpatient [place], 13:15:00 23:59:59 Melissa L [id number] 07/01/2017 [facility] [place], 11:30:00 Melissa L [id number] 06/29/2017 [facility] Out[facility], 09:03:00 Melissa Menendez
[2017-07-02 07:15] VITALS: BMI 38.0
[2017-07-02] MEDS: LR 1,000 ML IV PRN ×2 (07:23→11:33)
[2017-07-02] MEDS: CLINDAMYCIN PB 900 MG/50 ML BAG IV SCH ×2 (07:24→15:31)
--- NOTE | 2017-07-02 10:15 | Anesthesia Preoperative Report ---
Anesthesia Epidural/Spinal Rec - Date and Time Date: 07/02/17 Preoperative Diagnosis: 38 wk Procedure: Labor Epidural Plan: Epidural - Vital Signs Vital Signs: Pulse Rate 113 H 07/02/17 07:03 Respiratory Rate 16 07/02/17 07:03 Blood Pressure 126/79 07/02/17 07:03 /Para: P:0 - Medictaions & Allergies Inpatient Medications: Current Medications Acetaminophen (Tylenol) 500 - 1,000 mg PO Q4H PRN PRN Reason: Pain Al Hydroxide/Mg Hydroxide (Maalox Plus) 30 ml PO Q3H PRN PRN Reason: Indigestion Calcium Carbonate (Tums) 500 - 1,000 mg PO Q2H PRN PRN Reason: Indigestion Carboprost Tromethamine (Hemabate) 250 mcg IM O PRN PRN Reason: .Downtime Clindamycin Phosphate (Cleocin Premix) 900 mg in 50 mls @ 50 mls/hr IV Q8H ARIANA Last Admin: 07/02/17 07:24 Dose: 50 mls/hr Dextrose/Lactated Ringer's (Dextrose 5%-Lactated Ringers) 1,000 mls @ 125 mls/ hr IV .Q8H PRN PRN Reason: Labor Last Admin: 07/02/17 07:22 Dose: 125 mls/hr Lactated Ringer's (Lactated Ringers) 1,000 mls @ 999 mls/hr IV .Q1H1M PRN Last Admin: 07/02/17 07:23 Dose: 999 mls/hr Oxytocin (Pitocin Drip) 30 unit in 500 mls @ 2 mls/hr IV .Q24H PRN; Protocol PRN Reason: Induction/Augmentation Last Admin: 07/02/17 07:23 Dose: 2 mls/hr Lidocaine HCl (Xylocaine-Mpf 1% Vial) 0.2 mg ID O PRN PRN Reason: IV Start Methylergonovine Maleate (Methergine) 0.2 mg IM O PRN Misoprostol (Cytotec) 800 mcg LA ONCE PRN Allergies/Adverse Reactions: Allergies Allergy/AdvReac Type Severity Reaction Status Date / Time Penicillins Allergy Rash Verified 07/02/17 06:41 - Home Medications Home Medications: Home Medications Medication Instructions Recorded Confirmed Type Dha 1 tab PO BID 07/02/17 07/02/17 History - Medical History Other History: Reports: Now - Surgical History Musculoskeletal Surgery/Tx: Reports: Carpal Tunnel Release Reproductive Surgery/Treatment: DENIES: Section Anesthesia Reactions: None Hx Family Anesthesia Reaction: No History of Motion Sickness: No - Social History Smoking Status: Never smoker Second Hand Exposure: No Substance Use Type: does not use Alcohol Intake Frequency: does not drink Hx Chewing Tobacco Use: No - Pertinent Findings Lab Data: CBC and BMP 07/02/17 06:45 EKG Rhythm: Normal Sinus Rhythm - Physical Exam Respiratory Exam: lungs clear Cardiovascular Exam: regular rate and rhythm, no murmur - Airway Assessment Mallampati Score: II TMD: 3 Fingerbreadths Neck Extension: good Overall Assessment: no airway concerns - ASA ASA Score: 2 - Discussion Discussion: Discussed risks/options/alternatives of anesthesia and questions answered. Patient consents. Nursing pain assessment noted. Anesthesia Discussion: spouse Attestation Statement: Prior to the delivery of any anesthetic medication, I examined the patient, developed the plan, obtained the patient's consent and discussed the risk and benefits of the procedure with the patient/guardian.
[2017-07-02] MEDS ORDERED: ONDANSETRON 4 MG/2 ML INJECTION IVP PRN (12:16)
[2017-07-02] MEDS ORDERED: DiphenhydrAMINE 50 MG/ML INJECTION IVP PRN (12:16)
[2017-07-02] MEDS ORDERED: NALOXONE 0.4 MG/ML INJECTION IVP PRN (12:16)
[2017-07-02] MEDS ORDERED: ROPIVACAINE 1% 10MG/ML INJ 200 MG, SUFentanil 50 MCG in NS 100 ML EPI PRN (12:16)
[2017-07-02] MEDS ORDERED: DiphenhydrAMINE 25 MG CAPSULE PO PRN (15:32)
[2017-07-02] MEDS ORDERED: HYDROCODONE/APAP 5mg/325mg TABLET PO PRN (15:32)
[2017-07-02] MEDS ORDERED: HYDROCORTISONE 2.5% CREAM 30gm RECTALLY PRN (15:32)
[2017-07-02] MEDS ORDERED: TETANUS, DIPHTHERIA, a PERTUSSIS (Tdap) 0.5ml INJECTION IM ONE (15:32)
[2017-07-02] MEDS ORDERED: OXYTOCIN DRIP 30 UNIT/500 ML ML IV SCH (15:32)
--- NOTE | 2017-07-02 17:29 | Anesthesia Postoperative Note ---
- Date and Time Date: 07/02/17 Time: 17:28 - Status Patient Participated in Evaluation: Patient Participated in Person Vital Signs: Pulse Rate 113 H 07/02/17 07:03 Respiratory Rate 16 07/02/17 07:03 Blood Pressure 126/79 07/02/17 07:03 Respiratory Function: Airway Patent Cardiovascular Function: Regular Pulse Mental Status: Alert and Oriented Pain Intensity: 0 Hydration: Taking PO Fluids Complications During Recover: None Apparent - Follow-Up Instructions Instructions: Per Surgeon
--- NOTE | 2017-07-02 17:36 | Labor and Delivery Note ---
DATE OF DELIVERY 07/02/2017 DESCRIPTION Ms. Jasso was found to have proteinuria along with mildly elevated blood pressures. Therefore, she was admitted to [facility] on 07/02/2017 for induction of labor at 38 weeks estimated gestational age. She progressed well in labor and then began to push at the complete and +2 position at presentation. She pushed for a few moments, delivering the head in the OA presentation. Baby was bulb suctioned on the perineum. With a further push baby was delivered in total. Baby was then further bulb suctioned and placed on mother's abdomen for care. After two minutes the cord was doubly clamped and then cut by the baby's father, Deborah. This was a liveborn female with Apgars of 8/9/9. She weighed 7 pounds, 12.4 ounces. After a few moments the placenta delivered spontaneously intact. It had a normal configuration and normal-appearing three-vessel cord. The perineum was intact but there was a first-degree right vaginal sidewall laceration that was repaired with a figure- of-eight suture of 2-0 Vicryl. Total blood loss was approximately 300 mL. At the time of this dictation mother and baby are doing well. [facility]
[2017-07-02] MEDS: IBUPROFEN 800 MG TABLET PO SCH (19:16)
[2017-07-03] MEDS: IBUPROFEN 800 MG TABLET PO SCH ×4 (00:30→15:43)
[2017-07-03] MEDS: DOCUSATE CALCIUM 240 MG CAPSULE PO SCH ×2 (07:38→13:22)
[2017-07-03] MEDS ORDERED: PRENATAL VITAMIN TABLET PO SCH (09:00)
[2017-07-03 09:03] VITALS: RESP 16
--- NOTE | 2017-07-03 09:27 | OB/GYN Progress Note ---
OB-PP Progress Note - General PPD1 Maternal Group B Strep: Positive Maternal blood type: A+ Maternal Rubella Status: Immune - Subjective Date: 07/03/17 Lochia: Minimal Pain: controlled Voiding: voiding Nausea or Vomiting Present: No - Objective Vital Signs: Last Vital Signs Temp 97.8 F 07/03/17 07:10 Pulse 85 07/03/17 07:10 Resp 16 07/03/17 07:10 BP 145/85 H 07/03/17 07:10 Pulse Ox 99 07/02/17 19:00 General: alert and oriented Abdomen: fundus firm, non-tender Extremities: non-tender Edema: none - Assessment Assessment: SP, - Plan Plan: routine care Expected date of discharge: 07/04/17
[2017-07-03] MEDS: PRENATAL VITAMIN TABLET PO SCH (13:44)
[2017-07-04] MEDS: DOCUSATE CALCIUM 240 MG CAPSULE PO SCH (08:56)
[2017-07-04] MEDS: IBUPROFEN 800 MG TABLET PO SCH (08:56)
[2017-07-04] MEDS: PRENATAL VITAMIN TABLET PO SCH (08:56)
[2017-07-04 09:10] VITALS: BP 125/77; PULSE 123; TEMP 97.8; O2SAT 98
--- NOTE | 2017-07-04 10:51 | OB/GYN Progress Note ---
OB-PP Progress Note - General PPD2 Maternal Group B Strep: Positive Maternal blood type: A+ Maternal Rubella Status: Immune - Subjective Date: 07/04/17 Lochia: Minimal Pain: controlled Nausea or Vomiting Present: No - Objective Vital Signs: Last Vital Signs Temp 97.8 F 07/04/17 08:40 Pulse 123 H 07/04/17 08:40 Resp 16 07/04/17 08:40 BP 125/77 07/04/17 08:40 Pulse Ox 98 07/04/17 08:40 General: alert and oriented Cardiovascular: regular rate,rhythm Respiratory: non-labored Abdomen: fundus firm, non-tender - Assessment Assessment: SP, - Plan Plan: routine care, discharge home Mother to room in with infant in nursery.
== END 2017-07-04 13:00 | disposition home or self-care (01) | DRG 775 ==
LOC: MC 06:09
PROVIDERS: ADMIT Obstetrics & Gynecology; ATTEND Obstetrics & Gynecology